=== PATIENT | male | born 1945 | race Two or more races ===

== ENCOUNTER 2022-10-04 09:57 | Inpatient (IN) | payer OTHER ==
[~2022-10-04] VITALS: Ht 170.2 cm; Wt 64.2 kg
[2022-10-04] MEDS ORDERED: SODIUM CHLORIDE 0.9% 1,000 ML IV ONE ×4 (10:30→13:30)
[2022-10-04] MEDS ORDERED: AZITHROMYCIN 500MG/ 250ML 250 ML IV ONE (10:30)
[2022-10-04] MEDS ORDERED: cefTRIAXone 1GM/50ML D5W 50 ML IV ONE (10:30)
[2022-10-04 10:46] LABS: Basophils # (auto) 0.1 10 ^3/uL (0-0.2); Basophils % (auto) 0.5 % (0.0-2.0); Eosinophils # (auto) 0 10 ^3/uL (0-0.8); Eosinophils % (auto) 0.1 % (0.0-7.0); Hematocrit 32.6 % (41.0-53.0); Hemoglobin 10.4 g/dL (13.5-17.5); Lymphocytes # (auto) 0.4 10 ^3/uL (0.4-5.4); Lymphocytes % (auto) 3.8 % (10.0-50.0); Mean Corpuscular Hemoglobin 28.4 pg (28.0-32.0); Mean Corpuscular Hgb Conc. 31.9 g/dL (32.0-36.0); Monocytes # (auto) 1.7 10 ^3/uL (0-1.3); Monocytes % (auto) 16.3 % (0.0-12.0); Neutrophils # (auto) 8.4 10 ^3/uL (1.6-8.6); Neutrophils % (auto) 79.3 % (37.0-80.0); Red Blood Cells 3.66 10^6/uL (4.5-5.90); Red Cell Distribution Width 16.8 % (11.8-14.3); White Blood Cell 10.6 10^3/uL (4.4-10.8)
[2022-10-04 11:02] LABS: Albumin 1.7 g/dL (3.4-5.0); Calcium 6.9 mg/dL (8.5-10.1); Potassium 4.3 mmol/L (3.5-5.1)
[2022-10-04 11:05] LABS: BUN/Creatinine Ratio 18.9 (10.0-20.0); Bilirubin, Total 0.7 mg/dL (0.2-1.0); Lactic Acid w/Reflex 2.5 mmol/L (0.4-2.0); Total Protein 4.7 g/dL (6.4-8.2)
[2022-10-04 11:55] LABS: INR 1.84 (0.9-1.15); Prothrombin Time 18.6 sec (9.3-11.8)
[2022-10-04 12:19] VITALS: PULSE 113; RESP 24; O2SAT 98
[2022-10-04] MEDS: NOREPINEPHRINE 8 MG/250ML KIT 250 ML IV SCH (13:15)
[2022-10-04 13:20] LABS: Urine Bacteria NONE SEEN /hpf (None Seen); Urine Blood Negative /uL (Negative); Urine Clarity HAZY (Clear); Urine Color Yellow (Yellow); Urine Mucus FEW (None Seen); Urine Protein, UAD 1+ (Negative); Urine Specific Gravity 1.021 (1.001-1.035); Urine Urobilinogen Normal (Negative); Urine WBC 17 /hpf (0 - 3); Urine pH 5.5 (5.0-8.0)
[2022-10-04] MEDS ORDERED: MORPHINE SULFATE 4 MG/ML SYR/VIAL IV PRN (16:30)
[2022-10-04] MEDS: metroNIDAZOLE 500MG/100ML 100 ML IV SCH (16:47)
[2022-10-04] MEDS: D5W/ SOD CHL 0.9%/KCL 20MEQ 1,000 ML IV SCH (16:48)
[2022-10-04 20:00] VITALS: PULSE 127; RESP 26; O2SAT 97
[2022-10-04] MEDS: ACETAMINOPHEN 650 mg PER 20.3 mL UD PO PRN (22:33)
[2022-10-05] VITALS (71 sets, daily range): BP systolic 89–118; BP diastolic 51–68; PULSE 110–124; RESP 22–35; TEMP 97.4–98.2; O2SAT 92–99
[2022-10-05] MEDS: D5W/ SOD CHL 0.9%/KCL 20MEQ 1,000 ML IV SCH ×3 (00:50→21:12)
[2022-10-05] MEDS: metroNIDAZOLE 500MG/100ML 100 ML IV SCH ×2 (02:42→08:42)
[2022-10-05 06:37] LABS: Basophils # (auto) 0 10 ^3/uL (0-0.2); Basophils % (auto) 0.1 % (0.0-2.0); Eosinophils # (auto) 0 10 ^3/uL (0-0.8); Eosinophils % (auto) 0.1 % (0.0-7.0); Hematocrit 30.2 % (41.0-53.0); Lymphocytes # (auto) 0.4 10 ^3/uL (0.4-5.4); Lymphocytes % (auto) 3.2 % (10.0-50.0); Mean Corpuscular Hemoglobin 29.2 pg (28.0-32.0); Mean Corpuscular Hgb Conc. 33.1 g/dL (32.0-36.0); Mean Corpuscular Volume 88.2 fL (80.0-100.0); Monocytes # (auto) 1.1 10 ^3/uL (0-1.3); Monocytes % (auto) 9.2 % (0.0-12.0); Neutrophils # (auto) 10.3 10 ^3/uL (1.6-8.6); Neutrophils % (auto) 87.4 % (37.0-80.0); Red Blood Cells 3.43 10^6/uL (4.5-5.90); White Blood Cell 11.7 10^3/uL (4.4-10.8)
[2022-10-05 06:45] LABS: BUN/Creatinine Ratio 25.7 (10.0-20.0); Calcium 6.7 mg/dL (8.5-10.1); Magnesium 2.4 mg/dL (1.6-2.6); Potassium 3.9 mmol/L (3.5-5.1)
[2022-10-05 06:48] LABS: Lactic Acid w/Reflex 2.1 mmol/L (0.4-2.0)
[2022-10-05] MEDS: ENOXAPARIN SOD 40 MG/0.4 ML SYRINGE SC SCH (07:38)
[2022-10-05] MEDS: FAMOTIDINE (10MG/ML) 2ML VL IV SCH (07:38)
[2022-10-05] MEDS ORDERED: cefTRIAXone 1GM/50ML D5W 50 ML IV SCH (09:00)
[2022-10-05] MEDS: NOREPINEPHRINE 8 MG/250ML KIT 250 ML IV SCH (12:54)
[2022-10-05] MEDS: VANCOMYCIN HCL 125MG/5ML ORAL SOL PO SCH ×2 (18:20→22:00)
[2022-10-05] MEDS: HYOSCYAMINE SULF 0.125 MG ODT TAB PO PRN (18:20)
[2022-10-05] MEDS: ONDANSETRON HCL 4 MG/2 ML VIAL IV PRN (18:56)
[2022-10-06] VITALS (26 sets, daily range): BP systolic 88–141; BP diastolic 56–76; PULSE 104–115; RESP 19–36; TEMP 97.4–99.8; O2SAT 95–99
[2022-10-06 05:13] LABS: Hematocrit 32.1 % (41.0-53.0); Hemoglobin 10.2 g/dL (13.5-17.5); Mean Corpuscular Hemoglobin 28.3 pg (28.0-32.0); Mean Corpuscular Hgb Conc. 31.7 g/dL (32.0-36.0); Mean Corpuscular Volume 89.5 fL (80.0-100.0); Red Blood Cells 3.59 10^6/uL (4.5-5.90); Red Cell Distribution Width 17.1 % (11.8-14.3); White Blood Cell 7.5 10^3/uL (4.4-10.8)
[2022-10-06 05:28] LABS: BUN/Creatinine Ratio 24.3 (10.0-20.0); Potassium 4.3 mmol/L (3.5-5.1)
[2022-10-06 05:36] LABS: Basophils % (manual) 0 (0.0-2.0); Blast Cells 0; Eosinophils % (manual) 0 (0-7); Myelocytes % 0; Promyelocytes % 0; Reactive Lymphocytes 0
[2022-10-06] MEDS: VANCOMYCIN HCL 125MG/5ML ORAL SOL PO SCH ×4 (05:55→21:32)
[2022-10-06] MEDS: D5W/ SOD CHL 0.9%/KCL 20MEQ 1,000 ML IV SCH ×4 (05:55→23:47)
[2022-10-06 09:08] LABS: Anisocytosis Slight; Band Neutrophils % (manual) 35; Lymphocytes % (manual) 6 (10.0-50.0); Metamyelocytes % 1; Monocytes % (manual) 12 (0-12); Platelet Estimate Adequate
[2022-10-06] MEDS: ENOXAPARIN SOD 40 MG/0.4 ML SYRINGE SC SCH (10:13)
[2022-10-06] MEDS: FAMOTIDINE (10MG/ML) 2ML VL IV SCH (10:13)
[2022-10-06] MEDS: NOREPINEPHRINE 8 MG/250ML KIT 250 ML IV SCH (10:13)
[2022-10-06] MEDS: ONDANSETRON HCL 4 MG/2 ML VIAL IV PRN (17:04)
[2022-10-06] MEDS: metroNIDAZOLE 500MG/100ML 100 ML IV SCH ×2 (17:37→23:47)
[2022-10-07] VITALS (11 sets, daily range): BP systolic 110–138; BP diastolic 63–83; PULSE 100–114; RESP 18–32; TEMP 97.4–98.7; O2SAT 95–100
[2022-10-07] MEDS: metroNIDAZOLE 500MG/100ML 100 ML IV SCH ×3 (05:14→18:13)
[2022-10-07] MEDS: VANCOMYCIN HCL 125MG/5ML ORAL SOL PO SCH ×4 (05:14→22:04)
[2022-10-07] MEDS: FAMOTIDINE (10MG/ML) 2ML VL IV SCH (08:53)
[2022-10-07] MEDS: ENOXAPARIN SOD 40 MG/0.4 ML SYRINGE SC SCH (08:54)
[2022-10-07] MEDS: D5W/ SOD CHL 0.9%/KCL 20MEQ 1,000 ML IV SCH ×2 (11:26→15:50)
[2022-10-07] MEDS: CHOLESTYRAMINE 4 GM POWDER PO SCH (22:03)
[2022-10-08] VITALS (8 sets, daily range): BP systolic 131–148; BP diastolic 72–90; PULSE 81–117; RESP 17–31; TEMP 97–99.7; O2SAT 95–98
[2022-10-08] MEDS: metroNIDAZOLE 500MG/100ML 100 ML IV SCH ×4 (00:25→17:51)
[2022-10-08] MEDS: D5W/ SOD CHL 0.9%/KCL 20MEQ 1,000 ML IV SCH ×2 (00:25→19:36)
[2022-10-08] MEDS: VANCOMYCIN HCL 125MG/5ML ORAL SOL PO SCH ×3 (05:24→17:52)
[2022-10-08 06:32] LABS: Hematocrit 32.2 % (41.0-53.0); Mean Corpuscular Hgb Conc. 31.2 g/dL (32.0-36.0); Mean Corpuscular Volume 89.6 fL (80.0-100.0); Red Blood Cells 3.59 10^6/uL (4.5-5.90); Red Cell Distribution Width 17.5 % (11.8-14.3); White Blood Cell 2.9 10^3/uL (4.4-10.8)
[2022-10-08 06:52] LABS: Calcium 7.4 mg/dL (8.5-10.1); Potassium 4.5 mmol/L (3.5-5.1)
[2022-10-08 06:55] LABS: BUN/Creatinine Ratio 31.7 (10.0-20.0)
[2022-10-08 06:57] LABS: Basophils % (manual) 0 (0.0-2.0); Blast Cells 0; Eosinophils % (manual) 0 (0-7); Promyelocytes % 0; Reactive Lymphocytes 0
[2022-10-08] MEDS: FAMOTIDINE (10MG/ML) 2ML VL IV SCH (10:44)
[2022-10-08] MEDS: ENOXAPARIN SOD 40 MG/0.4 ML SYRINGE SC SCH (10:44)
[2022-10-08] MEDS: CHOLESTYRAMINE 4 GM POWDER PO SCH (10:45)
[2022-10-08 11:27] LABS: Band Neutrophils % (manual) 28; Lymphocytes % (manual) 28 (10.0-50.0); Metamyelocytes % 7; Monocytes % (manual) 8 (0-12); Myelocytes % 7
[2022-10-08 11:28] LABS: Platelet Estimate Adequate
[2022-10-09] MEDS: VANCOMYCIN HCL 125MG/5ML ORAL SOL PO SCH ×5 (04:17→21:23)
[2022-10-09] MEDS: CHOLESTYRAMINE 4 GM POWDER PO SCH ×3 (04:18→23:18)
[2022-10-09] MEDS: metroNIDAZOLE 500MG/100ML 100 ML IV SCH ×5 (04:19→23:18)
[2022-10-09 06:37] LABS: Hematocrit 34.4 % (41.0-53.0); Mean Corpuscular Hemoglobin 28.6 pg (28.0-32.0); Mean Corpuscular Volume 89.5 fL (80.0-100.0); Red Blood Cells 3.84 10^6/uL (4.5-5.90); Red Cell Distribution Width 17.8 % (11.8-14.3); White Blood Cell 3.2 10^3/uL (4.4-10.8)
[2022-10-09 06:49] LABS: Potassium 4.6 mmol/L (3.5-5.1)
[2022-10-09 06:58] LABS: BUN/Creatinine Ratio 38.8 (10.0-20.0); Calcium 7.5 mg/dL (8.5-10.1); Magnesium 2.6 mg/dL (1.6-2.6)
[2022-10-09 07:40] LABS: Band Neutrophils % (manual) 0; Basophils % (manual) 0 (0.0-2.0); Blast Cells 0; Eosinophils % (manual) 0 (0-7); Metamyelocytes % 0; Myelocytes % 0; Promyelocytes % 0; Reactive Lymphocytes 0
[2022-10-09 08:00] VITALS: PULSE 113; PULSE 120; RESP 20; O2SAT 95
[2022-10-09 08:56] VITALS: BP 151/92; PULSE 119; RESP 14; TEMP 98.7; O2SAT 96
[2022-10-09] MEDS: FAMOTIDINE (10MG/ML) 2ML VL IV SCH (10:16)
[2022-10-09] MEDS: ENOXAPARIN SOD 40 MG/0.4 ML SYRINGE SC SCH (10:17)
[2022-10-09 10:52] LABS: Lymphocytes % (manual) 25 (10.0-50.0); Monocytes % (manual) 23 (0-12); Platelet Estimate Adequate
[2022-10-09] MEDS: D5W/ SOD CHL 0.9%/KCL 20MEQ 1,000 ML IV SCH (11:02)
[2022-10-09] MEDS ORDERED: IOHEXOL 300 MG/ML 100ML BOTTLE IJ ONE (13:55)
[2022-10-09 17:01] VITALS: BP 139/74; PULSE 110; RESP 14; TEMP 97.5; O2SAT 94
[2022-10-09 20:00] VITALS: PULSE 110; RESP 20; O2SAT 95
[2022-10-09 22:00] VITALS: BP 138/75; PULSE 110; RESP 20; TEMP 99.3; O2SAT 99
[2022-10-10] VITALS (7 sets, daily range): BP systolic 113–145; BP diastolic 60–76; PULSE 100–114; RESP 16–22; TEMP 97.7–98.3; O2SAT 98–100
[2022-10-10] MEDS: D5W/ SOD CHL 0.9%/KCL 20MEQ 1,000 ML IV SCH ×3 (00:12→14:22)
[2022-10-10] MEDS: metroNIDAZOLE 500MG/100ML 100 ML IV SCH ×4 (05:35→23:36)
[2022-10-10] MEDS: VANCOMYCIN HCL 125MG/5ML ORAL SOL PO SCH ×4 (05:35→21:40)
[2022-10-10] MEDS: ENOXAPARIN SOD 40 MG/0.4 ML SYRINGE SC SCH (09:13)
[2022-10-10] MEDS: FAMOTIDINE (10MG/ML) 2ML VL IV SCH (09:13)
[2022-10-10] MEDS: ONDANSETRON HCL 4 MG/2 ML VIAL IV PRN (09:27)
[2022-10-10] MEDS: CHOLESTYRAMINE 4 GM POWDER PO SCH ×2 (10:53→21:37)
[2022-10-11] VITALS (7 sets, daily range): BP systolic 109–138; BP diastolic 66–74; PULSE 98–107; RESP 16–22; TEMP 97.5–98.6; O2SAT 98–99
[2022-10-11] MEDS: VANCOMYCIN HCL 125MG/5ML ORAL SOL PO SCH ×4 (05:06→21:10)
[2022-10-11] MEDS: metroNIDAZOLE 500MG/100ML 100 ML IV SCH ×4 (05:06→23:00)
[2022-10-11 07:09] LABS: Basophils # (auto) 0 10 ^3/uL (0-0.2); Basophils % (auto) 0.1 % (0.0-2.0); Eosinophils # (auto) 0 10 ^3/uL (0-0.8); Eosinophils % (auto) 1.3 % (0.0-7.0); Hematocrit 31.8 % (41.0-53.0); Hemoglobin 10.2 g/dL (13.5-17.5); Lymphocytes # (auto) 0.4 10 ^3/uL (0.4-5.4); Mean Corpuscular Hemoglobin 28.6 pg (28.0-32.0); Mean Corpuscular Hgb Conc. 32.1 g/dL (32.0-36.0); Mean Corpuscular Volume 89.2 fL (80.0-100.0); Monocytes # (auto) 0.5 10 ^3/uL (0-1.3); Neutrophils # (auto) 1.4 10 ^3/uL (1.6-8.6); Neutrophils % (auto) 60.1 % (37.0-80.0); Nucleated Red Blood Cells % 0.2 %; Red Blood Cells 3.57 10^6/uL (4.5-5.90); Red Cell Distribution Width 18.3 % (11.8-14.3); White Blood Cell 2.3 10^3/uL (4.4-10.8)
[2022-10-11 07:23] LABS: Potassium 4.3 mmol/L (3.5-5.1)
[2022-10-11 07:29] LABS: Albumin 1.3 g/dL (3.4-5.0); BUN/Creatinine Ratio 42.9 (10.0-20.0); Bilirubin, Total 0.4 mg/dL (0.2-1.0); Calcium 7.3 mg/dL (8.5-10.1); Total Protein 4.5 g/dL (6.4-8.2)
[2022-10-11 07:56] LABS: Monocytes % (auto) 20.5 % (0.0-12.0)
[2022-10-11] MEDS: FAMOTIDINE (10MG/ML) 2ML VL IV SCH (09:52)
[2022-10-11] MEDS: ENOXAPARIN SOD 40 MG/0.4 ML SYRINGE SC SCH (09:53)
[2022-10-11] MEDS: CHOLESTYRAMINE 4 GM POWDER PO SCH ×2 (09:53→21:09)
[2022-10-11] MEDS: D5W/ SOD CHL 0.9%/KCL 20MEQ 1,000 ML IV SCH (13:11)
[2022-10-11] MEDS: Pro-Stat SF 30ml Vanilla PO SCH (18:00)
[2022-10-12] VITALS (7 sets, daily range): BP systolic 123–142; BP diastolic 70–76; PULSE 102–113; RESP 17–20; TEMP 97.7–99.2; O2SAT 97–99
[2022-10-12] MEDS: metroNIDAZOLE 500MG/100ML 100 ML IV SCH ×4 (05:01→22:59)
[2022-10-12] MEDS: VANCOMYCIN HCL 125MG/5ML ORAL SOL PO SCH ×4 (05:52→22:55)
[2022-10-12 07:27] LABS: Hemoglobin 10.4 g/dL (13.5-17.5); Mean Corpuscular Hgb Conc. 31.4 g/dL (32.0-36.0)
[2022-10-12 07:30] LABS: Hematocrit 33.3 % (41.0-53.0); Mean Corpuscular Hemoglobin 28.2 pg (28.0-32.0); Mean Corpuscular Volume 89.7 fL (80.0-100.0); Red Blood Cells 3.71 10^6/uL (4.5-5.90); Red Cell Distribution Width 18.3 % (11.8-14.3)
[2022-10-12 07:36] LABS: White Blood Cell 1.5 10^3/uL (4.4-10.8)
[2022-10-12 07:37] LABS: Basophils % (manual) 0 (0.0-2.0); Blast Cells 0; Eosinophils % (manual) 0 (0-7); Metamyelocytes % 0; Myelocytes % 0; Promyelocytes % 0; Reactive Lymphocytes 0
[2022-10-12] MEDS: Pro-Stat SF 30ml Vanilla PO SCH ×2 (08:00→19:12)
[2022-10-12 08:23] LABS: Band Neutrophils % (manual) 15; Lymphocytes % (manual) 27 (10.0-50.0); Monocytes % (manual) 27 (0-12)
[2022-10-12 08:24] LABS: Platelet Estimate Adequate
[2022-10-12] MEDS: CHOLESTYRAMINE 4 GM POWDER PO SCH ×2 (09:49→21:13)
[2022-10-12] MEDS: FAMOTIDINE (10MG/ML) 2ML VL IV SCH (09:50)
[2022-10-12] MEDS: MORPHINE SULFATE INJ 2 MG/ml SYRG IV PRN (09:51)
[2022-10-12] MEDS: ENOXAPARIN SOD 40 MG/0.4 ML SYRINGE SC SCH (09:52)
[2022-10-12] MEDS: D5W/ SOD CHL 0.9%/KCL 20MEQ 1,000 ML IV SCH ×3 (09:56→21:14)
[2022-10-12] MEDS: ONDANSETRON HCL 4 MG/2 ML VIAL IV PRN (12:03)
[2022-10-13] VITALS (7 sets, daily range): BP systolic 112–120; BP diastolic 53–73; PULSE 101–120; RESP 16–20; TEMP 97.8–99.4; O2SAT 96–99
[2022-10-13] MEDS: metroNIDAZOLE 500MG/100ML 100 ML IV SCH ×2 (05:08→11:12)
[2022-10-13] MEDS: VANCOMYCIN HCL 125MG/5ML ORAL SOL PO SCH ×3 (05:29→18:03)
[2022-10-13 05:51] LABS: Hemoglobin 10.4 g/dL (13.5-17.5)
[2022-10-13 05:55] LABS: Hematocrit 32.4 % (41.0-53.0); Mean Corpuscular Hemoglobin 28.2 pg (28.0-32.0); Mean Corpuscular Volume 88.2 fL (80.0-100.0); Red Blood Cells 3.68 10^6/uL (4.5-5.90); Red Cell Distribution Width 18.6 % (11.8-14.3)
[2022-10-13 06:08] LABS: BUN/Creatinine Ratio 31.9 (10.0-20.0); Calcium 6.7 mg/dL (8.5-10.1); Magnesium 2.1 mg/dL (1.6-2.6)
[2022-10-13 06:15] LABS: White Blood Cell 1.8 10^3/uL (4.4-10.8)
[2022-10-13 06:17] LABS: Basophils % (manual) 0 (0.0-2.0); Blast Cells 0; Eosinophils % (manual) 0 (0-7); Metamyelocytes % 0; Myelocytes % 0; Promyelocytes % 0; Reactive Lymphocytes 0
[2022-10-13] MEDS: Pro-Stat SF 30ml Vanilla PO SCH ×2 (08:00→18:01)
[2022-10-13] MEDS: FAMOTIDINE (10MG/ML) 2ML VL IV SCH (08:34)
[2022-10-13] MEDS: ENOXAPARIN SOD 40 MG/0.4 ML SYRINGE SC SCH (08:40)
[2022-10-13 10:50] LABS: Band Neutrophils % (manual) 11; Lymphocytes % (manual) 22 (10.0-50.0); Monocytes % (manual) 18 (0-12)
[2022-10-13 10:52] LABS: Anisocytosis Slight; Platelet Estimate Adequate
[2022-10-13] MEDS: CHOLESTYRAMINE 4 GM POWDER PO SCH ×3 (11:12→21:52)
[2022-10-13] MEDS: MORPHINE SULFATE INJ 2 MG/ml SYRG IV PRN (11:16)
[2022-10-13] MEDS: SODIUM CHLORIDE 0.9% 1,000 ML IV SCH (14:00)
[2022-10-13] MEDS ORDERED: PATIENTS OWN MEDICATION PO SCH (22:00)
[2022-10-13] MEDS: VANCOMYCIN 500MG RECTAL ENEMA IN 100ML/NS PR SCH (22:10)
[2022-10-14] VITALS (7 sets, daily range): BP systolic 110–136; BP diastolic 63–77; PULSE 97–106; RESP 14–17; TEMP 98.1–99.6; O2SAT 96–99
[2022-10-14] MEDS: SODIUM CHLORIDE 0.9% 1,000 ML IV SCH (03:27)
[2022-10-14] MEDS: VANCOMYCIN 500MG RECTAL ENEMA IN 100ML/NS PR SCH ×4 (06:04→21:59)
[2022-10-14] MEDS: CHOLESTYRAMINE 4 GM POWDER PO SCH ×3 (06:11→21:59)
[2022-10-14 07:26] LABS: Basophils # (auto) 0 10 ^3/uL (0-0.2); Eosinophils # (auto) 0 10 ^3/uL (0-0.8); Hemoglobin 9.4 g/dL (13.5-17.5); Lymphocytes # (auto) 0.5 10 ^3/uL (0.4-5.4); Monocytes # (auto) 0.3 10 ^3/uL (0-1.3); Neutrophils # (auto) 0.6 10 ^3/uL (1.6-8.6)
[2022-10-14 07:29] LABS: Basophils % (auto) 0.4 % (0.0-2.0); Eosinophils % (auto) 2.8 % (0.0-7.0); Hematocrit 29.3 % (41.0-53.0); Lymphocytes % (auto) 33.3 % (10.0-50.0); Mean Corpuscular Hemoglobin 28.2 pg (28.0-32.0); Mean Corpuscular Volume 88.1 fL (80.0-100.0); Neutrophils % (auto) 40.6 % (37.0-80.0); Nucleated Red Blood Cells % 0.3 %; Red Blood Cells 3.33 10^6/uL (4.5-5.90); Red Cell Distribution Width 18.5 % (11.8-14.3)
[2022-10-14 07:38] LABS: White Blood Cell 1.5 10^3/uL (4.4-10.8)
[2022-10-14 07:39] LABS: Monocytes % (auto) 22.9 % (0.0-12.0); Potassium 3.3 mmol/L (3.5-5.1)
[2022-10-14 07:47] LABS: Albumin 1.1 g/dL (3.4-5.0); Bilirubin, Total 0.3 mg/dL (0.2-1.0); Calcium 6.2 mg/dL (8.5-10.1); Total Protein 3.6 g/dL (6.4-8.2)
[2022-10-14] MEDS: Pro-Stat SF 30ml Vanilla PO SCH ×2 (08:00→18:00)
[2022-10-14] MEDS: FAMOTIDINE (10MG/ML) 2ML VL IV SCH (10:09)
[2022-10-14] MEDS: ENOXAPARIN SOD 40 MG/0.4 ML SYRINGE SC SCH (10:11)
[2022-10-14] MEDS: SOD CHL 0.9%/ KCL 20MEQ 1,000 ML IV SCH ×2 (15:00→19:32)
[2022-10-14] MEDS ORDERED: PATIENTS OWN MEDICATION PO SCH (22:00)
[2022-10-15] VITALS (7 sets, daily range): BP systolic 116–124; BP diastolic 62–76; PULSE 1–113; RESP 17–18; TEMP 97.7–99.1; O2SAT 95–100
[2022-10-15] MEDS: CHOLESTYRAMINE 4 GM POWDER PO SCH ×3 (05:53→22:03)
[2022-10-15] MEDS: VANCOMYCIN 500MG RECTAL ENEMA IN 100ML/NS PR SCH ×4 (05:54→22:02)
[2022-10-15 06:09] LABS: Hematocrit 30.9 % (41.0-53.0); Hemoglobin 9.9 g/dL (13.5-17.5); Mean Corpuscular Hgb Conc. 31.9 g/dL (32.0-36.0); Mean Corpuscular Volume 87.7 fL (80.0-100.0); Red Blood Cells 3.52 10^6/uL (4.5-5.90); Red Cell Distribution Width 18.5 % (11.8-14.3)
[2022-10-15 06:19] LABS: White Blood Cell 1.5 10^3/uL (4.4-10.8)
[2022-10-15 06:21] LABS: Basophils % (manual) 0 (0.0-2.0); Blast Cells 0; Metamyelocytes % 0; Myelocytes % 0; Promyelocytes % 0; Reactive Lymphocytes 0
[2022-10-15 06:27] LABS: Potassium 4.2 mmol/L (3.5-5.1)
[2022-10-15 06:44] LABS: BUN/Creatinine Ratio 34.3 (10.0-20.0); Calcium 7.1 mg/dL (8.5-10.1); Magnesium 2.6 mg/dL (1.6-2.6)
[2022-10-15] MEDS: Pro-Stat SF 30ml Vanilla PO SCH ×2 (08:00→18:06)
[2022-10-15 08:11] LABS: Band Neutrophils % (manual) 4; Eosinophils % (manual) 1 (0-7); Lymphocytes % (manual) 46 (10.0-50.0); Monocytes % (manual) 12 (0-12)
[2022-10-15 08:12] LABS: Large Platelets FEW; Platelet Estimate Adequa
[2022-10-15] MEDS: SOD CHL 0.9%/ KCL 20MEQ 1,000 ML IV SCH ×2 (10:05→17:40)
[2022-10-15] MEDS: FAMOTIDINE (10MG/ML) 2ML VL IV SCH (10:06)
[2022-10-15] MEDS: ENOXAPARIN SOD 40 MG/0.4 ML SYRINGE SC SCH (10:06)
[2022-10-16] VITALS (7 sets, daily range): BP systolic 117–142; BP diastolic 69–76; PULSE 100–110; RESP 14–22; TEMP 97.8–98.3; O2SAT 98–99
[2022-10-16] MEDS: SOD CHL 0.9%/ KCL 20MEQ 1,000 ML IV SCH ×2 (01:31→19:46)
[2022-10-16] MEDS: VANCOMYCIN 500MG RECTAL ENEMA IN 100ML/NS PR SCH ×4 (05:55→22:00)
[2022-10-16] MEDS: CHOLESTYRAMINE 4 GM POWDER PO SCH ×3 (05:55→22:00)
[2022-10-16] MEDS: Pro-Stat SF 30ml Vanilla PO SCH ×2 (09:56→18:30)
[2022-10-16] MEDS: FAMOTIDINE (10MG/ML) 2ML VL IV SCH (09:57)
[2022-10-16] MEDS: ENOXAPARIN SOD 40 MG/0.4 ML SYRINGE SC SCH (09:57)
[2022-10-16 10:45] LABS: Hematocrit 30.2 % (41.0-53.0); Hemoglobin 9.6 g/dL (13.5-17.5); Mean Corpuscular Hemoglobin 27.9 pg (28.0-32.0); Mean Corpuscular Hgb Conc. 31.8 g/dL (32.0-36.0); Mean Corpuscular Volume 87.7 fL (80.0-100.0); Red Blood Cells 3.44 10^6/uL (4.5-5.90); Red Cell Distribution Width 18.5 % (11.8-14.3)
[2022-10-16 10:48] LABS: White Blood Cell 1.5 10^3/uL (4.4-10.8)
[2022-10-16 10:49] LABS: Basophils % (manual) 0 (0.0-2.0); Blast Cells 0; Metamyelocytes % 0; Myelocytes % 0; Promyelocytes % 0; Reactive Lymphocytes 0
[2022-10-16 11:18] LABS: Band Neutrophils % (manual) 12; Eosinophils % (manual) 3 (0-7); Lymphocytes % (manual) 49 (10.0-50.0); Monocytes % (manual) 7 (0-12)
[2022-10-16 11:19] LABS: Platelet Estimate Adequate
[2022-10-16] MEDS ORDERED: DIPHENOXYLATE W/ATROPINE 2.5 MG TAB PO PRN (12:45)
[2022-10-17] VITALS (7 sets, daily range): BP systolic 113–134; BP diastolic 70–79; PULSE 99–114; RESP 0–18; TEMP 97.8–98.9; O2SAT 98–100
[2022-10-17] MEDS: VANCOMYCIN 500MG RECTAL ENEMA IN 100ML/NS PR SCH ×4 (06:02→22:30)
[2022-10-17] MEDS: CHOLESTYRAMINE 4 GM POWDER PO SCH ×3 (06:02→22:29)
[2022-10-17 06:27] LABS: Hemoglobin 7.9 g/dL (13.5-17.5)
[2022-10-17 06:30] LABS: Hematocrit 25.1 % (41.0-53.0); Mean Corpuscular Hemoglobin 28.5 pg (28.0-32.0); Mean Corpuscular Hgb Conc. 31.4 g/dL (32.0-36.0); Mean Corpuscular Volume 90.8 fL (80.0-100.0); Red Blood Cells 2.77 10^6/uL (4.5-5.90); Red Cell Distribution Width 18.9 % (11.8-14.3)
[2022-10-17 07:20] LABS: White Blood Cell 1.6 10^3/uL (4.4-10.8)
[2022-10-17 07:21] LABS: Basophils % (manual) 0 (0.0-2.0); Blast Cells 0; Eosinophils % (manual) 0 (0-7); Metamyelocytes % 0; Myelocytes % 0; Promyelocytes % 0; Reactive Lymphocytes 0
[2022-10-17] MEDS: SOD CHL 0.9%/ KCL 20MEQ 1,000 ML IV SCH ×2 (07:39→23:46)
[2022-10-17] MEDS: Pro-Stat SF 30ml Vanilla PO SCH ×2 (08:00→18:00)
[2022-10-17 09:15] LABS: Band Neutrophils % (manual) 2; Lymphocytes % (manual) 40 (10.0-50.0); Monocytes % (manual) 13 (0-12); Platelet Estimate Adequate
[2022-10-17] MEDS: FAMOTIDINE (10MG/ML) 2ML VL IV SCH (11:22)
[2022-10-17] MEDS: ENOXAPARIN SOD 40 MG/0.4 ML SYRINGE SC SCH (11:22)
[2022-10-17] MEDS ORDERED: MONT-8 PO (11:27)
[2022-10-17] MEDS ORDERED: IRON SUCROSE COMPLEX 200 MG in SODIUM CHL 0.9% 100 ML IV SCH (12:30)
[2022-10-17] MEDS ORDERED: SODIUM FERR GLUC 62.5MG/5ML 125 MG in SODIUM CHL 0.9% 100 ML IV ONE (18:00)
[2022-10-18] VITALS (7 sets, daily range): BP systolic 116–141; BP diastolic 69–78; PULSE 108–113; RESP 16–20; TEMP 97.7–99.6; O2SAT 98–100
[2022-10-18] MEDS: VANCOMYCIN 500MG RECTAL ENEMA IN 100ML/NS PR SCH ×2 (06:14→13:57)
[2022-10-18] MEDS: CHOLESTYRAMINE 4 GM POWDER PO SCH ×3 (06:14→22:18)
[2022-10-18 06:47] LABS: INR 2.19 (0.9-1.15); Partial Thromboplastin Time 39.1 SEC (24.5-34.5); Prothrombin Time 21.8 sec (9.3-11.8)
[2022-10-18 06:49] LABS: Basophils # (auto) 0 10 ^3/uL (0-0.2); Basophils % (auto) 0.7 % (0.0-2.0); Eosinophils # (auto) 0 10 ^3/uL (0-0.8); Eosinophils % (auto) 2.1 % (0.0-7.0); Hematocrit 28.2 % (41.0-53.0); Lymphocytes # (auto) 0.5 10 ^3/uL (0.4-5.4); Lymphocytes % (auto) 25.2 % (10.0-50.0); Mean Corpuscular Hemoglobin 27.9 pg (28.0-32.0); Mean Corpuscular Hgb Conc. 31.8 g/dL (32.0-36.0); Mean Corpuscular Volume 87.7 fL (80.0-100.0); Monocytes # (auto) 0.5 10 ^3/uL (0-1.3); Neutrophils % (auto) 47.2 % (37.0-80.0); Nucleated Red Blood Cells % 0.8 %; Red Blood Cells 3.22 10^6/uL (4.5-5.90)
[2022-10-18 07:35] LABS: Monocytes % (auto) 24.8 % (0.0-12.0)
[2022-10-18] MEDS: Pro-Stat SF 30ml Vanilla PO SCH ×2 (08:00→18:30)
[2022-10-18] MEDS: FAMOTIDINE (10MG/ML) 2ML VL IV SCH (09:20)
[2022-10-18] MEDS: ENOXAPARIN SOD 40 MG/0.4 ML SYRINGE SC SCH (09:20)
[2022-10-18] MEDS ORDERED: SODIUM FERR GLUC 62.5MG/5ML 125 MG in SODIUM CHL 0.9% 100 ML IV SCH (12:00)
[2022-10-18] MEDS: SOD CHL 0.9%/ KCL 20MEQ 1,000 ML IV SCH (12:57)
[2022-10-18] MEDS: VANCOMYCIN HCL 125MG/5ML ORAL SOL PO SCH ×2 (18:25→22:17)
[2022-10-18] MEDS: metroNIDAZOLE 500MG/100ML 100 ML IV SCH (22:18)
[2022-10-19] MEDS: SOD CHL 0.9%/ KCL 20MEQ 1,000 ML IV SCH ×3 (03:47→23:26)
[2022-10-19 05:00] VITALS: BP 115/71; PULSE 111; RESP 17; TEMP 98.3; O2SAT 100
[2022-10-19] MEDS: VANCOMYCIN HCL 125MG/5ML ORAL SOL PO SCH ×4 (05:55→21:21)
[2022-10-19] MEDS: CHOLESTYRAMINE 4 GM POWDER PO SCH ×3 (05:55→21:20)
[2022-10-19] MEDS: metroNIDAZOLE 500MG/100ML 100 ML IV SCH ×3 (05:56→21:20)
[2022-10-19 05:59] LABS: Hemoglobin 9.1 g/dL (13.5-17.5)
[2022-10-19 06:08] LABS: Hematocrit 28.7 % (41.0-53.0); Mean Corpuscular Hemoglobin 28.1 pg (28.0-32.0); Mean Corpuscular Hgb Conc. 31.8 g/dL (32.0-36.0); Mean Corpuscular Volume 88.6 fL (80.0-100.0); Red Blood Cells 3.24 10^6/uL (4.5-5.90); Red Cell Distribution Width 18.7 % (11.8-14.3)
[2022-10-19 06:12] LABS: Potassium 3.7 mmol/L (3.5-5.1)
[2022-10-19 06:18] LABS: White Blood Cell 1.9 10^3/uL (4.4-10.8)
[2022-10-19 06:19] LABS: Basophils % (manual) 0 (0.0-2.0); Blast Cells 0; Metamyelocytes % 0; Myelocytes % 0; Promyelocytes % 0; Reactive Lymphocytes 0
[2022-10-19 06:21] LABS: Albumin 1.3 g/dL (3.4-5.0); BUN/Creatinine Ratio 26.3 (10.0-20.0); Bilirubin, Total 0.5 mg/dL (0.2-1.0); Calcium 7.5 mg/dL (8.5-10.1); Total Protein 4.5 g/dL (6.4-8.2)
[2022-10-19 07:06] LABS: Band Neutrophils % (manual) 16; Eosinophils % (manual) 1 (0-7); Lymphocytes % (manual) 28 (10.0-50.0); Monocytes % (manual) 14 (0-12); Platelet Estimate Adequate
[2022-10-19 08:00] VITALS: PULSE 111; RESP 20; O2SAT 99
[2022-10-19] MEDS: Pro-Stat SF 30ml Vanilla PO SCH ×2 (08:00→18:00)
[2022-10-19 09:00] VITALS: BP 120/80; PULSE 120; RESP 22; TEMP 98.4; O2SAT 99
[2022-10-19] MEDS: ENOXAPARIN SOD 40 MG/0.4 ML SYRINGE SC SCH (09:52)
[2022-10-19] MEDS: IRON SUCROSE COMPLEX 200 MG in SODIUM CHL 0.9% 100 ML IV SCH (12:17)
[2022-10-19 13:00] VITALS: BP 111/77; PULSE 100; RESP 20; TEMP 98.5; O2SAT 99
[2022-10-19 17:00] VITALS: BP 125/63; PULSE 100; RESP 18; TEMP 98.3; O2SAT 99
[2022-10-19] MEDS ORDERED: TPN PER PHARMACY 0 ML IV SCH (17:30)
[2022-10-19 19:07] LABS: Magnesium 2.4 mg/dL (1.6-2.6); Phosphorus 2.7 mg/dL (2.5-4.90)
[2022-10-19 19:13] LABS: INR 2.15 (0.9-1.15); Partial Thromboplastin Time 44.3 SEC (24.5-34.5); Prothrombin Time 21.5 sec (9.3-11.8)
[2022-10-19 19:53] LABS: Hemoglobin 9.4 g/dL (13.5-17.5)
[2022-10-19 19:55] LABS: Hematocrit 30.2 % (41.0-53.0); Mean Corpuscular Hemoglobin 27.5 pg (28.0-32.0); Mean Corpuscular Volume 88.8 fL (80.0-100.0); Red Cell Distribution Width 18.5 % (11.8-14.3); White Blood Cell 2.1 10^3/uL (4.4-10.8)
[2022-10-19 19:58] LABS: Basophils % (manual) 0 (0.0-2.0); Blast Cells 0; Eosinophils % (manual) 0 (0-7); Metamyelocytes % 0; Myelocytes % 0; Promyelocytes % 0; Reactive Lymphocytes 0
[2022-10-19 20:00] VITALS: PULSE 114; RESP 18; O2SAT 98
[2022-10-19] MEDS ORDERED: AMINO ACID INFUSION IN D10W 1,000 ML IV NR (20:00)
[2022-10-19 21:35] LABS: Band Neutrophils % (manual) 3; Lymphocytes % (manual) 26 (10.0-50.0); Monocytes % (manual) 17 (0-12); Platelet Estimate Adequate
[2022-10-19] MEDS: ACCU-CHEK COMFORT CURVE STRIP VI SCH (23:25)
[2022-10-19] MEDS: InsuLIN REG 1unit/0.01ml Soln (100units/ml) SC SCH (23:25)
[2022-10-20] VITALS (7 sets, daily range): BP systolic 134–139; BP diastolic 54–80; PULSE 109–120; RESP 14–20; TEMP 97.4–99.3; O2SAT 98–100
[2022-10-20] MEDS ORDERED: DEXTROSE (50%) 50ML SYRG IV SCH
[2022-10-20] MEDS: VANCOMYCIN HCL 125MG/5ML ORAL SOL PO SCH ×4 (05:21→21:55)
[2022-10-20] MEDS: metroNIDAZOLE 500MG/100ML 100 ML IV SCH ×3 (05:21→21:55)
[2022-10-20] MEDS: CHOLESTYRAMINE 4 GM POWDER PO SCH ×3 (05:21→21:55)
[2022-10-20] MEDS: ACCU-CHEK COMFORT CURVE STRIP VI SCH ×4 (05:54→23:31)
[2022-10-20] MEDS: InsuLIN REG 1unit/0.01ml Soln (100units/ml) SC SCH ×4 (06:04→23:31)
[2022-10-20 06:42] LABS: Hematocrit 28.4 % (41.0-53.0); Hemoglobin 9.2 g/dL (13.5-17.5); Mean Corpuscular Hemoglobin 28.5 pg (28.0-32.0); Mean Corpuscular Hgb Conc. 32.5 g/dL (32.0-36.0); Mean Corpuscular Volume 87.7 fL (80.0-100.0); Red Blood Cells 3.24 10^6/uL (4.5-5.90)
[2022-10-20 06:51] LABS: Basophils % (manual) 0 (0.0-2.0); Blast Cells 0; Metamyelocytes % 0; Myelocytes % 0; Promyelocytes % 0; Reactive Lymphocytes 0
[2022-10-20 06:59] LABS: Potassium 3.2 mmol/L (3.5-5.1)
[2022-10-20 07:11] LABS: Band Neutrophils % (manual) 10; Eosinophils % (manual) 1 (0-7); Lymphocytes % (manual) 31 (10.0-50.0); Monocytes % (manual) 17 (0-12)
[2022-10-20 07:12] LABS: Platelet Estimate Adequate
[2022-10-20 07:14] LABS: Albumin 1.3 g/dL (3.4-5.0); BUN/Creatinine Ratio 21.4 (10.0-20.0); Bilirubin, Total 0.4 mg/dL (0.2-1.0); Calcium 7.7 mg/dL (8.5-10.1); Magnesium 2.1 mg/dL (1.6-2.6); Phosphorus 1.9 mg/dL (2.5-4.90); Total Protein 4.4 g/dL (6.4-8.2)
[2022-10-20] MEDS: Pro-Stat SF 30ml Vanilla PO SCH ×2 (08:00→17:56)
[2022-10-20] MEDS ORDERED: POTASSIUM CHLORIDE 40 MEQ, LIDOCAINE 1% (LOCAL ANESTH.) 4 ML in SODIUM CHL 0.9% 250 ML IV ONE (09:30)
[2022-10-20] MEDS ORDERED: SODIUM PHOSP 40 MEQ in D5W 5% 250 ML IV ONE (10:15)
[2022-10-20] MEDS ORDERED: POTASSIUM PHOSPHATE 44 MEQ in D5W 5% 250 ML IV ONE (10:15)
[2022-10-20] MEDS: IRON SUCROSE COMPLEX 200 MG in SODIUM CHL 0.9% 100 ML IV SCH (12:00)
[2022-10-20] MEDS: SOD CHL 0.9%/ KCL 20MEQ 1,000 ML IV SCH (18:44)
[2022-10-20] MEDS ORDERED: PPN PER PHARMACY IV NR ×10 (20:00)
[2022-10-20] MEDS ORDERED: TPN PER PHARMACY IV NR ×9 (20:00)
[2022-10-20] MEDS: HYOSCYAMINE SULF 0.125 MG ODT TAB PO PRN (22:26)
[2022-10-21 04:35] VITALS: BP 152/77; PULSE 95; RESP 19; TEMP 98.4; O2SAT 99
[2022-10-21] MEDS: ACCU-CHEK COMFORT CURVE STRIP VI SCH ×3 (05:05→17:16)
[2022-10-21] MEDS: metroNIDAZOLE 500MG/100ML 100 ML IV SCH ×3 (05:05→21:58)
[2022-10-21] MEDS: CHOLESTYRAMINE 4 GM POWDER PO SCH ×3 (05:05→21:58)
[2022-10-21] MEDS: VANCOMYCIN HCL 125MG/5ML ORAL SOL PO SCH (05:05)
[2022-10-21 06:03] LABS: Hemoglobin 8.4 g/dL (13.5-17.5)
[2022-10-21 06:06] LABS: Hematocrit 26.8 % (41.0-53.0); Mean Corpuscular Hemoglobin 28.3 pg (28.0-32.0); Mean Corpuscular Hgb Conc. 31.3 g/dL (32.0-36.0); Mean Corpuscular Volume 90.2 fL (80.0-100.0); Red Blood Cells 2.98 10^6/uL (4.5-5.90); Red Cell Distribution Width 19.6 % (11.8-14.3); White Blood Cell 2.2 10^3/uL (4.4-10.8)
[2022-10-21 06:08] LABS: Basophils % (manual) 0 (0.0-2.0); Blast Cells 0; Metamyelocytes % 0; Myelocytes % 0; Promyelocytes % 0; Reactive Lymphocytes 0
[2022-10-21] MEDS: InsuLIN REG 1unit/0.01ml Soln (100units/ml) SC SCH ×4 (06:19→23:48)
[2022-10-21 06:49] LABS: Band Neutrophils % (manual) 26; Eosinophils % (manual) 2 (0-7); Lymphocytes % (manual) 33 (10.0-50.0); Monocytes % (manual) 14 (0-12); Platelet Estimate Adequate
[2022-10-21] MEDS: SOD CHL 0.9%/ KCL 20MEQ 1,000 ML IV SCH ×2 (07:00→13:12)
[2022-10-21 08:00] VITALS: BP_SYST 131; BP_SYST 137; BP_SYST 157; BP_DIAS 67; BP_DIAS 74; BP_DIAS 77; PULSE 102; PULSE 110; PULSE 20; PULSE 88; RESP 18; RESP 20; TEMP 97.5; TEMP 97.6; TEMP 98.7; O2SAT 97; O2SAT 98; O2SAT 99
[2022-10-21] MEDS: Pro-Stat SF 30ml Vanilla PO SCH ×2 (08:54→18:04)
[2022-10-21] MEDS: DIFICID 200 MG TABLET PO SCH ×2 (09:53→21:57)
[2022-10-21 11:40] LABS: Calcium 7.1 mg/dL (8.5-10.1); Potassium 3.2 mmol/L (3.5-5.1)
[2022-10-21 11:46] LABS: Albumin 1.3 g/dL (3.4-5.0); BUN/Creatinine Ratio 26.1 (10.0-20.0); Bilirubin, Total 0.3 mg/dL (0.2-1.0); Magnesium 2.4 mg/dL (1.6-2.6); Phosphorus 2.8 mg/dL (2.5-4.90); Total Protein 4.5 g/dL (6.4-8.2)
[2022-10-21] MEDS ORDERED: LIDOCAINE 1% (LOCAL ANESTH.) PF 5ml SDV ID ONE (12:00)
[2022-10-21] MEDS: IRON SUCROSE COMPLEX 200 MG in SODIUM CHL 0.9% 100 ML IV SCH (12:00)
[2022-10-21] MEDS: POTASSIUM CHL 20MEQ/100ML 100 ML IV SCH ×2 (12:47→16:34)
[2022-10-21 20:00] VITALS: PULSE 109; RESP 20; O2SAT 98
[2022-10-21] MEDS ORDERED: TPN PER PHARMACY IV NR ×10 (20:00)
[2022-10-21] MEDS: SODIUM CHLOR 0.9% PF (SALINE LOCK) 10ML VIAL/SYR IV SCH (21:58)
[2022-10-21 22:00] VITALS: BP 124/79; PULSE 110; RESP 26; TEMP 98.6; O2SAT 98
[2022-10-21] MEDS: MORPHINE SULFATE INJ 2 MG/ml SYRG IV PRN (23:18)
[2022-10-22] VITALS (7 sets, daily range): BP systolic 127–131; BP diastolic 66–80; PULSE 85–120; RESP 18–20; TEMP 98–99; O2SAT 97–100
[2022-10-22] MEDS: ACCU-CHEK COMFORT CURVE STRIP VI SCH ×5 (00:18→23:35)
[2022-10-22] MEDS: SOD CHL 0.9%/ KCL 20MEQ 1,000 ML IV SCH ×2 (02:27→23:00)
[2022-10-22] MEDS: InsuLIN REG 1unit/0.01ml Soln (100units/ml) SC SCH ×4 (05:40→23:36)
[2022-10-22] MEDS: CHOLESTYRAMINE 4 GM POWDER PO SCH ×3 (05:40→21:18)
[2022-10-22] MEDS: metroNIDAZOLE 500MG/100ML 100 ML IV SCH ×3 (05:40→21:18)
[2022-10-22 08:00] LABS: Potassium 4.2 mmol/L (3.5-5.1)
[2022-10-22 08:04] LABS: Albumin 1.4 g/dL (3.4-5.0); BUN/Creatinine Ratio 25.9 (10.0-20.0); Calcium 7.4 mg/dL (8.5-10.1); Magnesium 2.6 mg/dL (1.6-2.6); Phosphorus 2.8 mg/dL (2.5-4.90)
[2022-10-22] MEDS: SODIUM CHLOR 0.9% PF (SALINE LOCK) 10ML VIAL/SYR IV SCH ×2 (10:17→21:18)
[2022-10-22] MEDS: DIFICID 200 MG TABLET PO SCH ×2 (10:17→21:18)
[2022-10-22] MEDS: Pro-Stat SF 30ml Vanilla PO SCH ×2 (10:20→17:58)
[2022-10-22] MEDS ORDERED: TPN PER PHARMACY IV NR ×9 (20:00)
[2022-10-23] VITALS (7 sets, daily range): BP systolic 109–145; BP diastolic 67–86; PULSE 106–119; RESP 15–20; TEMP 97.4–98.2; O2SAT 98–100
[2022-10-23 04:58] LABS: Hematocrit 29.2 % (41.0-53.0); Hemoglobin 9.5 g/dL (13.5-17.5); Mean Corpuscular Hemoglobin 28.1 pg (28.0-32.0); Mean Corpuscular Hgb Conc. 32.4 g/dL (32.0-36.0); Mean Corpuscular Volume 86.7 fL (80.0-100.0); Red Blood Cells 3.37 10^6/uL (4.5-5.90); Red Cell Distribution Width 19.9 % (11.8-14.3); White Blood Cell 3.8 10^3/uL (4.4-10.8)
[2022-10-23] MEDS: metroNIDAZOLE 500MG/100ML 100 ML IV SCH ×2 (05:18→14:03)
[2022-10-23] MEDS: CHOLESTYRAMINE 4 GM POWDER PO SCH ×3 (05:18→20:00)
[2022-10-23] MEDS: ACCU-CHEK COMFORT CURVE STRIP VI SCH ×3 (05:18→17:41)
[2022-10-23 05:19] LABS: Basophils % (manual) 0 (0.0-2.0); Blast Cells 0; Promyelocytes % 0; Reactive Lymphocytes 0
[2022-10-23 05:47] LABS: Albumin 1.4 g/dL (3.4-5.0); Calcium 7.2 mg/dL (8.5-10.1); Magnesium 2.4 mg/dL (1.6-2.6); Potassium 3.5 mmol/L (3.5-5.1)
[2022-10-23 05:50] LABS: BUN/Creatinine Ratio 34.4 (10.0-20.0); Bilirubin, Total 0.3 mg/dL (0.2-1.0); Phosphorus 2.8 mg/dL (2.5-4.90); Total Protein 5.1 g/dL (6.4-8.2)
[2022-10-23] MEDS: InsuLIN REG 1unit/0.01ml Soln (100units/ml) SC SCH ×3 (06:37→17:41)
[2022-10-23 07:57] LABS: Band Neutrophils % (manual) 40; Eosinophils % (manual) 1 (0-7); Lymphocytes % (manual) 23 (10.0-50.0); Metamyelocytes % 12; Monocytes % (manual) 7 (0-12); Myelocytes % 2; Platelet Estimate Adequate
[2022-10-23] MEDS: Pro-Stat SF 30ml Vanilla PO SCH ×2 (08:01→17:41)
[2022-10-23] MEDS: SOD CHL 0.9%/ KCL 20MEQ 1,000 ML IV SCH ×2 (08:01→21:45)
[2022-10-23] MEDS: DIFICID 200 MG TABLET PO SCH ×2 (10:09→21:41)
[2022-10-23] MEDS: SODIUM CHLOR 0.9% PF (SALINE LOCK) 10ML VIAL/SYR IV SCH ×2 (10:09→21:41)
[2022-10-23] MEDS: MORPHINE SULFATE INJ 2 MG/ml SYRG IV PRN (10:33)
[2022-10-23] MEDS ORDERED: LIDOCAINE 2% JELLY 11ml (GLYDO) UR ONE (12:00)
[2022-10-23] MEDS ORDERED: LIDOCAINE 2% JELLY 11ml (GLYDO) ONE (12:02)
[2022-10-23] MEDS ORDERED: FAT EMULSION IV NR ×9 (20:00)
[2022-10-23] MEDS ORDERED: POTASSIUM ACETATE IV NR ×9 (20:00)
[2022-10-23] MEDS ORDERED: SODIUM PHOSPHATES IV NR ×9 (20:00)
[2022-10-23] MEDS ORDERED: [UNRECOGNIZED DRUG - OTHER] IV NR ×9 (20:00)
[2022-10-24] VITALS (8 sets, daily range): BP systolic 107–138; BP diastolic 66–82; PULSE 87–125; RESP 14–18; TEMP 98–99.1; O2SAT 94–100
[2022-10-24] MEDS: ACCU-CHEK COMFORT CURVE STRIP VI SCH ×5 (00:14→23:52)
[2022-10-24] MEDS: CHOLESTYRAMINE 4 GM POWDER PO SCH ×4 (01:24→20:09)
[2022-10-24] MEDS: InsuLIN REG 1unit/0.01ml Soln (100units/ml) SC SCH ×5 (05:25→23:52)
[2022-10-24 06:39] LABS: Hematocrit 28.2 % (41.0-53.0); Hemoglobin 9.1 g/dL (13.5-17.5)
[2022-10-24 06:58] LABS: Potassium 3.5 mmol/L (3.5-5.1)
[2022-10-24 07:10] LABS: Albumin 1.3 g/dL (3.4-5.0); Bilirubin, Total 0.3 mg/dL (0.2-1.0); Calcium 7.4 mg/dL (8.5-10.1); Magnesium 2.2 mg/dL (1.6-2.6); Phosphorus 2.9 mg/dL (2.5-4.90); Total Protein 4.9 g/dL (6.4-8.2)
[2022-10-24] MEDS: Pro-Stat SF 30ml Vanilla PO SCH ×2 (08:00→18:37)
[2022-10-24] MEDS: SODIUM CHLOR 0.9% PF (SALINE LOCK) 10ML VIAL/SYR IV SCH ×2 (09:01→21:34)
[2022-10-24] MEDS: DIFICID 200 MG TABLET PO SCH ×2 (09:01→21:35)
[2022-10-24] MEDS: SOD CHL 0.9%/ KCL 20MEQ 1,000 ML IV SCH (13:38)
[2022-10-24] MEDS ORDERED: TPN PER PHARMACY IV NR ×8 (20:00)
[2022-10-25] VITALS (8 sets, daily range): BP systolic 123–144; BP diastolic 72–83; PULSE 103–115; RESP 14–17; TEMP 98–99.4; O2SAT 99
[2022-10-25] MEDS: CHOLESTYRAMINE 4 GM POWDER PO SCH ×4 (01:41→20:26)
[2022-10-25] MEDS: SOD CHL 0.9%/ KCL 20MEQ 1,000 ML IV SCH ×2 (01:46→17:40)
[2022-10-25] MEDS: ACCU-CHEK COMFORT CURVE STRIP VI SCH ×4 (05:40→23:49)
[2022-10-25] MEDS: InsuLIN REG 1unit/0.01ml Soln (100units/ml) SC SCH ×4 (05:40→23:49)
[2022-10-25] MEDS: Pro-Stat SF 30ml Vanilla PO SCH ×2 (08:16→18:49)
[2022-10-25 08:45] LABS: Potassium 3.4 mmol/L (3.5-5.1)
[2022-10-25 08:59] LABS: Albumin 1.4 g/dL (3.4-5.0); BUN/Creatinine Ratio 57.7 (10.0-20.0); Bilirubin, Total 0.2 mg/dL (0.2-1.0); Calcium 6.6 mg/dL (8.7-10.4); Magnesium 2.4 mg/dL (1.6-2.6); Phosphorus 3.5 mg/dL (2.5-4.90); Total Protein 4.6 g/dL (6.4-8.2)
[2022-10-25] MEDS: SODIUM CHLOR 0.9% PF (SALINE LOCK) 10ML VIAL/SYR IV SCH ×2 (10:17→20:27)
[2022-10-25] MEDS: DIFICID 200 MG TABLET PO SCH ×2 (10:17→20:28)
[2022-10-25] MEDS ORDERED: POTASSIUM CHL 20MEQ/100ML 100 ML IV ONE (10:45)
[2022-10-25] MEDS ORDERED: TPN PER PHARMACY IV NR ×10 (20:00)
[2022-10-26] VITALS (8 sets, daily range): BP systolic 135–144; BP diastolic 71–79; PULSE 91–113; RESP 16–20; TEMP 97.7–100.2; O2SAT 98–99
[2022-10-26] MEDS: CHOLESTYRAMINE 4 GM POWDER PO SCH ×4 (01:45→19:45)
[2022-10-26 05:57] LABS: Basophils # (auto) 0 10 ^3/uL (0-0.2); Basophils % (auto) 0.6 % (0.0-2.0); Eosinophils # (auto) 0.2 10 ^3/uL (0-0.8); Lymphocytes # (auto) 0.9 10 ^3/uL (0.4-5.4); Monocytes # (auto) 0.6 10 ^3/uL (0-1.3); Neutrophils # (auto) 1.8 10 ^3/uL (1.6-8.6); White Blood Cell 3.5 10^3/uL (4.4-10.8)
[2022-10-26 06:00] LABS: Eosinophils % (auto) 5.1 % (0.0-7.0); Hematocrit 26.5 % (41.0-53.0); Hemoglobin 8.3 g/dL (13.5-17.5); Lymphocytes % (auto) 25.7 % (10.0-50.0); Mean Corpuscular Hemoglobin 27.6 pg (28.0-32.0); Mean Corpuscular Hgb Conc. 31.5 g/dL (32.0-36.0); Mean Corpuscular Volume 87.4 fL (80.0-100.0); Monocytes % (auto) 17.7 % (0.0-12.0); Neutrophils % (auto) 50.9 % (37.0-80.0); Nucleated Red Blood Cells % 0.2 %; Red Blood Cells 3.03 10^6/uL (4.5-5.90)
[2022-10-26] MEDS: InsuLIN REG 1unit/0.01ml Soln (100units/ml) SC SCH ×4 (06:00→21:55)
[2022-10-26 06:01] LABS: Red Cell Distribution Width 20.3 % (11.8-14.3)
[2022-10-26 06:23] LABS: Alanine Aminotransferase 11 U/L (7-40); Albumin 2.1 g/dL (3.2-4.8); Alkaline Phosphatase 88 U/L (46-116); Anion Gap 5.2 (5-15); Aspartate Aminotransferase 14 U/L (13-40); BUN/Creatinine Ratio 69.6 (10.0-20.0); Blood Urea Nitrogen 16 mg/dL (9-23); Calcium 7.1 mg/dL (8.7-10.4); Carbon Dioxide 26.8 mmol/L (20-30); Chloride 104 mmol/L (98-107); Glucose 119 mg/dL (74-106); Sodium 136 mmol/L (136-145)
[2022-10-26 06:24] LABS: Bilirubin, Total 0.3 mg/dL (0.2-1.0); Phosphorus 3.5 mg/dL (2.4-5.1); Total Protein 4.5 g/dL (5.7-8.2)
[2022-10-26] MEDS: ACCU-CHEK COMFORT CURVE STRIP VI SCH ×4 (06:26→21:55)
[2022-10-26] MEDS: SOD CHL 0.9%/ KCL 20MEQ 1,000 ML IV SCH ×2 (06:48→15:09)
[2022-10-26] MEDS: Pro-Stat SF 30ml Vanilla PO SCH ×2 (08:00→18:48)
[2022-10-26] MEDS: SODIUM CHLOR 0.9% PF (SALINE LOCK) 10ML VIAL/SYR IV SCH ×2 (09:17→19:25)
[2022-10-26] MEDS: DIFICID 200 MG TABLET PO SCH ×3 (09:17→19:26)
[2022-10-26] MEDS ORDERED: TPN PER PHARMACY IV NR ×9 (20:00)
[2022-10-27] VITALS (7 sets, daily range): BP systolic 127–146; BP diastolic 68–77; PULSE 87–96; RESP 17–20; TEMP 98.5–99.9; O2SAT 96–100
[2022-10-27] MEDS: CHOLESTYRAMINE 4 GM POWDER PO SCH ×4 (01:23→20:34)
[2022-10-27] MEDS: InsuLIN REG 1unit/0.01ml Soln (100units/ml) SC SCH ×3 (05:44→18:00)
[2022-10-27] MEDS: ACCU-CHEK COMFORT CURVE STRIP VI SCH ×3 (05:44→18:00)
[2022-10-27 06:32] LABS: Alanine Aminotransferase 19 U/L (7-40); Albumin 2.2 g/dL (3.2-4.8); Alkaline Phosphatase 115 U/L (46-116); Anion Gap 6.2 (5-15); Aspartate Aminotransferase 21 U/L (13-40); BUN/Creatinine Ratio 93.8 (10.0-20.0); Bilirubin, Total 0.3 mg/dL (0.2-1.0); Blood Urea Nitrogen 15 mg/dL (9-23); Calcium 7.4 mg/dL (8.5-10.1); Carbon Dioxide 27.8 mmol/L (20-30); Chloride 103 mmol/L (98-107); Glucose 113 mg/dL (74-106); Potassium 4.2 mmol/L (3.5-5.1); Sodium 137 mmol/L (136-145); Total Protein 4.5 g/dL (5.7-8.2); Triglycerides 125 mg/dL (< 150)
[2022-10-27] MEDS: DIFICID 200 MG TABLET PO SCH ×2 (08:30→22:28)
[2022-10-27] MEDS: SODIUM CHLOR 0.9% PF (SALINE LOCK) 10ML VIAL/SYR IV SCH ×2 (08:31→22:48)
[2022-10-27] MEDS: Pro-Stat SF 30ml Vanilla PO SCH ×2 (08:31→18:00)
[2022-10-27] MEDS: SOD CHL 0.9%/ KCL 20MEQ 1,000 ML IV SCH ×2 (08:31→09:59)
[2022-10-27] MEDS: TPN PER PHARMACY IV NR ×16 (20:34→22:27)
[2022-10-28] VITALS (7 sets, daily range): BP systolic 121–134; BP diastolic 70–81; PULSE 86–109; RESP 18–22; TEMP 97.6–98.6; O2SAT 99–100
[2022-10-28] MEDS: ACCU-CHEK COMFORT CURVE STRIP VI SCH ×4 (00:15→17:55)
[2022-10-28] MEDS: CHOLESTYRAMINE 4 GM POWDER PO SCH ×4 (01:20→19:45)
[2022-10-28] MEDS: InsuLIN REG 1unit/0.01ml Soln (100units/ml) SC SCH ×4 (06:00→17:53)
[2022-10-28 06:43] LABS: Alanine Aminotransferase 25 U/L (7-40); Albumin 2.7 g/dL (3.2-4.8); Alkaline Phosphatase 140 U/L (46-116); Anion Gap 3.6 (5-15); Aspartate Aminotransferase 23 U/L (13-40); BUN/Creatinine Ratio 62.5 (10.0-20.0); Blood Urea Nitrogen 15 mg/dL (9-23); Calcium 7.9 mg/dL (8.5-10.1); Carbon Dioxide 29.4 mmol/L (20-30); Chloride 101 mmol/L (98-107); Glucose 114 mg/dL (74-106); Magnesium 1.9 mg/dL (1.6-2.6); Sodium 134 mmol/L (136-145)
[2022-10-28 06:44] LABS: Bilirubin, Total 0.3 mg/dL (0.2-1.0); Phosphorus 3.9 mg/dL (2.4-5.1); Total Protein 5.5 g/dL (5.7-8.2)
[2022-10-28] MEDS: SOD CHL 0.9%/ KCL 20MEQ 1,000 ML IV SCH (09:04)
[2022-10-28] MEDS: DIFICID 200 MG TABLET PO SCH ×2 (09:05→22:00)
[2022-10-28] MEDS: Pro-Stat SF 30ml Vanilla PO SCH ×2 (09:05→17:56)
[2022-10-28] MEDS: SODIUM CHLOR 0.9% PF (SALINE LOCK) 10ML VIAL/SYR IV SCH ×2 (09:05→22:00)
[2022-10-28] MEDS ORDERED: MAGNESIUM SULFATE 1GM/100ML 100 ML IV ONE (12:00)
[2022-10-28] MEDS ORDERED: TPN PER PHARMACY IV NR ×9 (20:00)
[2022-10-29] VITALS (7 sets, daily range): BP systolic 117–136; BP diastolic 62–80; PULSE 82–109; RESP 12–22; TEMP 98.1–99.3; O2SAT 98–100
[2022-10-29] MEDS: ACCU-CHEK COMFORT CURVE STRIP VI SCH ×5 (01:10→23:12)
[2022-10-29] MEDS: InsuLIN REG 1unit/0.01ml Soln (100units/ml) SC SCH ×5 (01:11→23:14)
[2022-10-29] MEDS: SOD CHL 0.9%/ KCL 20MEQ 1,000 ML IV SCH ×2 (01:40→15:00)
[2022-10-29] MEDS: CHOLESTYRAMINE 4 GM POWDER PO SCH ×4 (01:45→18:52)
[2022-10-29 07:05] LABS: Potassium 3.9 mmol/L (3.5-5.1)
[2022-10-29 07:06] LABS: Anion Gap 4.3 (5-15); Calcium 8.1 mg/dL (8.7-10.4); Carbon Dioxide 27.7 mmol/L (20-30)
[2022-10-29 07:11] LABS: BUN/Creatinine Ratio 48.5 (10.0-20.0); INR 1.22 (0.9-1.15); Partial Thromboplastin Time 24.5 SEC (24.5-34.5); Prothrombin Time 12.6 sec (9.3-11.8)
[2022-10-29 07:12] LABS: Magnesium 1.9 mg/dL (1.6-2.6)
[2022-10-29 07:13] LABS: Albumin 2.9 g/dL (3.2-4.8); Phosphorus 3.5 mg/dL (2.4-5.1)
[2022-10-29 07:39] LABS: Basophils # (auto) 0 10 ^3/uL (0-0.2); Basophils % (auto) 0.8 % (0.0-2.0); Eosinophils # (auto) 0.3 10 ^3/uL (0-0.8); Eosinophils % (auto) 7.3 % (0.0-7.0); Hemoglobin 9.3 g/dL (13.5-17.5); Lymphocytes # (auto) 0.8 10 ^3/uL (0.4-5.4); Lymphocytes % (auto) 21.2 % (10.0-50.0); Mean Corpuscular Hemoglobin 28.6 pg (28.0-32.0); Mean Corpuscular Hgb Conc. 31.9 g/dL (32.0-36.0); Mean Corpuscular Volume 89.6 fL (80.0-100.0); Monocytes # (auto) 0.6 10 ^3/uL (0-1.3); Monocytes % (auto) 16.6 % (0.0-12.0); Neutrophils % (auto) 54.1 % (37.0-80.0); Nucleated Red Blood Cells % 0.1 %; Red Blood Cells 3.24 10^6/uL (4.5-5.90); White Blood Cell 3.6 10^3/uL (4.4-10.8)
[2022-10-29 07:42] LABS: Red Cell Distribution Width 21.1 % (11.8-14.3)
[2022-10-29] MEDS: Pro-Stat SF 30ml Vanilla PO SCH ×2 (08:00→17:37)
[2022-10-29] MEDS: SODIUM CHLOR 0.9% PF (SALINE LOCK) 10ML VIAL/SYR IV SCH ×2 (10:17→22:34)
[2022-10-29] MEDS: DIFICID 200 MG TABLET PO SCH ×2 (10:17→22:34)
[2022-10-29] MEDS ORDERED: TPN PER PHARMACY IV NR ×21 (20:00)
[2022-10-30] VITALS (8 sets, daily range): BP systolic 130–157; BP diastolic 64–82; PULSE 78–104; RESP 12–20; TEMP 97.2–98.3; O2SAT 98–100
[2022-10-30] MEDS: CHOLESTYRAMINE 4 GM POWDER PO SCH ×4 (01:16→20:00)
[2022-10-30] MEDS: SOD CHL 0.9%/ KCL 20MEQ 1,000 ML IV SCH ×3 (04:12→21:04)
[2022-10-30] MEDS: InsuLIN REG 1unit/0.01ml Soln (100units/ml) SC SCH ×4 (06:00→23:13)
[2022-10-30] MEDS: ACCU-CHEK COMFORT CURVE STRIP VI SCH ×4 (06:10→23:14)
[2022-10-30] MEDS: Pro-Stat SF 30ml Vanilla PO SCH ×2 (08:00→18:00)
[2022-10-30 08:42] LABS: Alanine Aminotransferase 22 U/L (7-40); Albumin 2.9 g/dL (3.2-4.8); Alkaline Phosphatase 160 U/L (46-116); Anion Gap 6.1 (5-15); Aspartate Aminotransferase 17 U/L (13-40); BUN/Creatinine Ratio 53.1 (10.0-20.0); Blood Urea Nitrogen 17 mg/dL (9-23); Calcium 8.1 mg/dL (8.5-10.1); Carbon Dioxide 24.9 mmol/L (20-30); Chloride 103 mmol/L (98-107); Glucose 124 mg/dL (74-106); Magnesium 1.9 mg/dL (1.6-2.6); Sodium 134 mmol/L (136-145)
[2022-10-30 08:43] LABS: Bilirubin, Total 0.3 mg/dL (0.2-1.0); Phosphorus 3.6 mg/dL (2.4-5.1); Total Protein 5.9 g/dL (5.7-8.2)
[2022-10-30] MEDS: SODIUM CHLOR 0.9% PF (SALINE LOCK) 10ML VIAL/SYR IV SCH ×2 (10:00→21:03)
[2022-10-30] MEDS: DIFICID 200 MG TABLET PO SCH ×2 (10:00→21:03)
[2022-10-30] MEDS ORDERED: OXYBUTYNIN CHL 5 MG TAB PO ONE (13:15)
[2022-10-30] MEDS ORDERED: TPN PER PHARMACY IV NR ×11 (20:00)
[2022-10-31] VITALS (7 sets, daily range): BP systolic 108–129; BP diastolic 68–75; PULSE 89–103; RESP 16–20; TEMP 97.3–99; O2SAT 98–99
[2022-10-31] MEDS: CHOLESTYRAMINE 4 GM POWDER PO SCH ×2 (01:45→07:45)
[2022-10-31] MEDS: InsuLIN REG 1unit/0.01ml Soln (100units/ml) SC SCH ×4 (06:00→23:57)
[2022-10-31] MEDS: ACCU-CHEK COMFORT CURVE STRIP VI SCH ×4 (06:05→23:57)
[2022-10-31 07:07] LABS: Alanine Aminotransferase 21 U/L (7-40); Alkaline Phosphatase 164 U/L (46-116); Anion Gap 5.5 (5-15); Aspartate Aminotransferase 13 U/L (13-40); BUN/Creatinine Ratio 56.3 (10.0-20.0); Bilirubin, Total 0.3 mg/dL (0.2-1.0); Blood Urea Nitrogen 18 mg/dL (9-23); Calcium 8.3 mg/dL (8.5-10.1); Carbon Dioxide 25.5 mmol/L (20-30); Chloride 105 mmol/L (98-107); Glucose 115 mg/dL (74-106); Magnesium 1.9 mg/dL (1.6-2.6); Phosphorus 3.5 mg/dL (2.4-5.1); Sodium 136 mmol/L (136-145)
[2022-10-31] MEDS: Pro-Stat SF 30ml Vanilla PO SCH ×2 (08:00→18:00)
[2022-10-31] MEDS: SODIUM CHLOR 0.9% PF (SALINE LOCK) 10ML VIAL/SYR IV SCH ×2 (10:00→21:13)
[2022-10-31] MEDS: OXYBUTYNIN CHL 5 MG TAB PO SCH (10:30)
[2022-10-31] MEDS ORDERED: TPN PER PHARMACY IV NR ×11 (20:00)
[2022-10-31] MEDS: SOD CHL 0.9%/ KCL 20MEQ 1,000 ML IV SCH (20:07)
[2022-10-31] MEDS: PANTOPRAZOLE 40 MG TAB PO SCH (21:13)
[2022-10-31] MEDS: ACETAMINOPHEN 650 mg PER 20.3 mL UD PO PRN (21:21)
[2022-11-01] VITALS (7 sets, daily range): BP systolic 119–136; BP diastolic 68–90; PULSE 91–100; RESP 16–22; TEMP 98.4–100; O2SAT 95–100
[2022-11-01] MEDS: ACCU-CHEK COMFORT CURVE STRIP VI SCH ×4 (05:23→23:10)
[2022-11-01] MEDS: InsuLIN REG 1unit/0.01ml Soln (100units/ml) SC SCH ×4 (05:24→23:10)
[2022-11-01 06:19] LABS: Alanine Aminotransferase 26 U/L (7-40); Alkaline Phosphatase 179 U/L (46-116); Anion Gap 6.5 (5-15); Calcium 8.2 mg/dL (8.7-10.4); Carbon Dioxide 25.5 mmol/L (20-30); Chloride 105 mmol/L (98-107); Glucose 114 mg/dL (74-106); Magnesium 1.8 mg/dL (1.6-2.6); Potassium 4.2 mmol/L (3.5-5.1); Sodium 137 mmol/L (136-145)
[2022-11-01 06:20] LABS: Aspartate Aminotransferase 16 U/L (13-40); Bilirubin, Total 0.3 mg/dL (0.2-1.0); Phosphorus 3.9 mg/dL (2.4-5.1); Total Protein 5.7 g/dL (5.7-8.2)
[2022-11-01 07:45] LABS: BUN/Creatinine Ratio 72.4 (10.0-20.0); Blood Urea Nitrogen 21 mg/dL (9-23)
[2022-11-01] MEDS: Pro-Stat SF 30ml Vanilla PO SCH ×2 (08:00→18:13)
[2022-11-01] MEDS: PANTOPRAZOLE 40 MG TAB PO SCH (08:15)
[2022-11-01] MEDS ORDERED: PANTOPRAZOLE 40 MG/10 ML VIAL INJ IV ONE (09:17)
[2022-11-01] MEDS ORDERED: [UNRECOGNIZED DRUG - OTHER] NG ONE ×2 (10:00)
[2022-11-01] MEDS: SODIUM CHLOR 0.9% PF (SALINE LOCK) 10ML VIAL/SYR IV SCH ×2 (10:38→20:31)
[2022-11-01] MEDS: SOD CHL 0.9%/ KCL 20MEQ 1,000 ML IV SCH ×2 (11:26→23:10)
[2022-11-01] MEDS: OXYBUTYNIN CHL 5 MG TAB PO SCH (13:58)
[2022-11-01] MEDS ORDERED: TPN PER PHARMACY IV NR ×11 (20:00)
[2022-11-02] VITALS (7 sets, daily range): BP systolic 131–146; BP diastolic 72–84; PULSE 58–103; RESP 18–22; TEMP 97.9–99.6; O2SAT 99–100
[2022-11-02] MEDS: ACCU-CHEK COMFORT CURVE STRIP VI SCH ×4 (06:00→23:47)
[2022-11-02] MEDS: InsuLIN REG 1unit/0.01ml Soln (100units/ml) SC SCH ×4 (06:00→23:48)
[2022-11-02 06:24] LABS: Alanine Aminotransferase 34 U/L (7-40); Albumin 3.1 g/dL (3.2-4.8); Alkaline Phosphatase 198 U/L (46-116); Anion Gap 7.7 (5-15); Aspartate Aminotransferase 25 U/L (13-40); Blood Urea Nitrogen 21 mg/dL (9-23); Calcium 8.4 mg/dL (8.5-10.1); Carbon Dioxide 23.3 mmol/L (20-30); Chloride 106 mmol/L (98-107); Glucose 116 mg/dL (74-106); Magnesium 1.8 mg/dL (1.6-2.6); Potassium 3.9 mmol/L (3.5-5.1); Sodium 137 mmol/L (136-145)
[2022-11-02 06:25] LABS: Bilirubin, Total 0.3 mg/dL (0.2-1.0); Phosphorus 3.8 mg/dL (2.4-5.1); Total Protein 6.1 g/dL (5.7-8.2)
[2022-11-02] MEDS: Pro-Stat SF 30ml Vanilla PO SCH ×2 (08:00→18:44)
[2022-11-02] MEDS: MAGNESIUM SULFATE 1GM/100ML 100 ML IV SCH ×2 (08:41→09:53)
[2022-11-02] MEDS: SODIUM CHLOR 0.9% PF (SALINE LOCK) 10ML VIAL/SYR IV SCH ×2 (08:45→21:17)
[2022-11-02] MEDS: OXYBUTYNIN CHL 5 MG TAB PO SCH (08:45)
[2022-11-02] MEDS: SOD CHL 0.9%/ KCL 20MEQ 1,000 ML IV SCH ×2 (13:44→18:45)
[2022-11-02] MEDS ORDERED: TPN PER PHARMACY IV NR ×9 (20:00)
[2022-11-03] VITALS (7 sets, daily range): BP systolic 111–133; BP diastolic 62–79; PULSE 89–101; RESP 18; TEMP 97.5–99.2; O2SAT 99–100
[2022-11-03] MEDS: InsuLIN REG 1unit/0.01ml Soln (100units/ml) SC SCH ×3 (05:19→18:00)
[2022-11-03] MEDS: ACCU-CHEK COMFORT CURVE STRIP VI SCH ×3 (05:19→18:00)
[2022-11-03 05:46] LABS: Basophils # (auto) 0.1 10 ^3/uL (0-0.2); Basophils % (auto) 1.1 % (0.0-2.0); Eosinophils # (auto) 0.3 10 ^3/uL (0-0.8); Eosinophils % (auto) 6.8 % (0.0-7.0); Hematocrit 29.9 % (41.0-53.0); Hemoglobin 9.6 g/dL (13.5-17.5); Lymphocytes # (auto) 1.1 10 ^3/uL (0.4-5.4); Lymphocytes % (auto) 21.9 % (10.0-50.0); Mean Corpuscular Hemoglobin 28.6 pg (28.0-32.0); Mean Corpuscular Hgb Conc. 32.2 g/dL (32.0-36.0); Mean Corpuscular Volume 88.9 fL (80.0-100.0); Monocytes # (auto) 0.8 10 ^3/uL (0-1.3); Monocytes % (auto) 16.2 % (0.0-12.0); Neutrophils # (auto) 2.6 10 ^3/uL (1.6-8.6); Nucleated Red Blood Cells % 0.1 %; Red Blood Cells 3.36 10^6/uL (4.5-5.90); Red Cell Distribution Width 22.7 % (11.8-14.3); White Blood Cell 4.8 10^3/uL (4.4-10.8)
[2022-11-03 06:06] LABS: Alanine Aminotransferase 36 U/L (7-40); Albumin 3.1 g/dL (3.2-4.8); Alkaline Phosphatase 191 U/L (46-116); Anion Gap 1.7 (5-15); Aspartate Aminotransferase 24 U/L (13-40); BUN/Creatinine Ratio 48.6 (10.0-20.0); Blood Urea Nitrogen 18 mg/dL (9-23); Calcium 8.5 mg/dL (8.5-10.1); Carbon Dioxide 29.3 mmol/L (20-30); Chloride 104 mmol/L (98-107); Glucose 124 mg/dL (74-106); Magnesium 2.1 mg/dL (1.6-2.6); Sodium 135 mmol/L (136-145); Triglycerides 158 mg/dL (< 150)
[2022-11-03 06:07] LABS: Bilirubin, Total 0.3 mg/dL (0.2-1.0); Phosphorus 3.9 mg/dL (2.4-5.1); Total Protein 6.3 g/dL (5.7-8.2)
[2022-11-03] MEDS: ACETAMINOPHEN 650 mg PER 20.3 mL UD PO PRN (06:55)
[2022-11-03] MEDS: Pro-Stat SF 30ml Vanilla PO SCH ×2 (08:00→18:00)
[2022-11-03] MEDS: SODIUM CHLOR 0.9% PF (SALINE LOCK) 10ML VIAL/SYR IV SCH ×2 (12:47→21:27)
[2022-11-03] MEDS: OXYBUTYNIN CHL 5 MG TAB PO SCH (12:47)
[2022-11-03] MEDS: HYOSCYAMINE SULF 0.125 MG ODT TAB PO PRN (12:47)
[2022-11-03] MEDS: SOD CHL 0.9%/ KCL 20MEQ 1,000 ML IV SCH (12:50)
[2022-11-03] MEDS: MORPHINE SULFATE INJ 2 MG/ml SYRG IV PRN (13:10)
[2022-11-03] MEDS ORDERED: TPN PER PHARMACY IV NR ×9 (20:00)
[2022-11-04] VITALS (7 sets, daily range): BP systolic 122–135; BP diastolic 66–82; PULSE 86–105; RESP 16–20; TEMP 97.8–98.1; O2SAT 93–100
[2022-11-04] MEDS: ACCU-CHEK COMFORT CURVE STRIP VI SCH ×4 (05:42→18:10)
[2022-11-04] MEDS: InsuLIN REG 1unit/0.01ml Soln (100units/ml) SC SCH ×4 (05:42→18:00)
[2022-11-04 06:55] LABS: Alanine Aminotransferase 32 U/L (7-40); Albumin 3.1 g/dL (3.2-4.8); Alkaline Phosphatase 177 U/L (46-116); Anion Gap 6.8 (5-15); Aspartate Aminotransferase 14 U/L (13-40); BUN/Creatinine Ratio 58.8 (10.0-20.0); Blood Urea Nitrogen 20 mg/dL (9-23); Calcium 8.4 mg/dL (8.7-10.4); Carbon Dioxide 24.2 mmol/L (20-30); Chloride 105 mmol/L (98-107); Glucose 121 mg/dL (74-106); Potassium 4.1 mmol/L (3.5-5.1); Sodium 136 mmol/L (136-145)
[2022-11-04 06:56] LABS: Bilirubin, Total 0.3 mg/dL (0.2-1.0); Phosphorus 4.1 mg/dL (2.4-5.1); Total Protein 5.9 g/dL (5.7-8.2)
[2022-11-04 07:28] LABS: Magnesium 1.9 mg/dL (1.6-2.6)
[2022-11-04] MEDS: Pro-Stat SF 30ml Vanilla PO SCH ×2 (08:00→18:00)
[2022-11-04] MEDS ORDERED: MAGNESIUM SULFATE 1GM/100ML 100 ML IV ONE (10:15)
[2022-11-04] MEDS: OXYBUTYNIN CHL 5 MG TAB PO SCH (11:40)
[2022-11-04] MEDS: SOD CHL 0.9%/ KCL 20MEQ 1,000 ML IV SCH (11:40)
[2022-11-04] MEDS: HYOSCYAMINE SULF 0.125 MG ODT TAB PO PRN (11:48)
[2022-11-04] MEDS: SODIUM CHLOR 0.9% PF (SALINE LOCK) 10ML VIAL/SYR IV SCH ×2 (11:48→22:17)
[2022-11-04] MEDS ORDERED: TPN PER PHARMACY IV NR ×10 (20:00)
[2022-11-05] VITALS (7 sets, daily range): BP systolic 122–132; BP diastolic 65–82; PULSE 86–102; RESP 16–18; TEMP 96.7–99; O2SAT 97–100
[2022-11-05] MEDS: ACCU-CHEK COMFORT CURVE STRIP VI SCH ×5 (00:24→23:50)
[2022-11-05] MEDS: InsuLIN REG 1unit/0.01ml Soln (100units/ml) SC SCH ×5 (05:22→23:50)
[2022-11-05 07:52] LABS: Alanine Aminotransferase 31 U/L (7-40); Alkaline Phosphatase 152 U/L (46-116); Anion Gap 6.7 (5-15); BUN/Creatinine Ratio 45.9 (10.0-20.0); Blood Urea Nitrogen 17 mg/dL (9-23); Calcium 8.6 mg/dL (8.5-10.1); Carbon Dioxide 25.3 mmol/L (20-30); Chloride 105 mmol/L (98-107); Glucose 118 mg/dL (74-106); Magnesium 1.8 mg/dL (1.6-2.6); Potassium 3.8 mmol/L (3.5-5.1); Sodium 137 mmol/L (136-145)
[2022-11-05 07:53] LABS: Albumin 3.2 g/dL (3.2-4.8); Aspartate Aminotransferase 21 U/L (13-40); Bilirubin, Total 0.2 mg/dL (0.2-1.0); Phosphorus 3.6 mg/dL (2.4-5.1); Total Protein 6.3 g/dL (5.7-8.2)
[2022-11-05] MEDS: Pro-Stat SF 30ml Vanilla PO SCH ×2 (08:00→18:00)
[2022-11-05] MEDS: SODIUM CHLOR 0.9% PF (SALINE LOCK) 10ML VIAL/SYR IV SCH ×2 (10:46→22:04)
[2022-11-05] MEDS: HYOSCYAMINE SULF 0.125 MG ODT TAB PO PRN (10:46)
[2022-11-05] MEDS: SOD CHL 0.9%/ KCL 20MEQ 1,000 ML IV SCH (10:46)
[2022-11-05] MEDS: OXYBUTYNIN CHL 5 MG TAB PO SCH (10:46)
[2022-11-05 13:28] LABS: Urine Bacteria NONE SEEN /hpf (None Seen); Urine Blood 2+ /uL (Negative); Urine Budding Yeast MODERATE /hpf (None Seen); Urine Clarity CLOUDY (Clear); Urine Color Colorless (Yellow); Urine Hyaline Cast FEW /lpf (0 - 2); Urine Protein, UAD 1+ (Negative); Urine Specific Gravity 1.016 (1.001-1.035); Urine Urobilinogen Normal (Negative); Urine WBC 1604 /hpf (0 - 3); Urine WBC Clumps PRESENT /hpf (None Seen); Urine pH 5.5 (5.0-8.0)
[2022-11-05] MEDS: diphenhdrAMINE HCL 25 MG CAP PO PRN (14:51)
[2022-11-05] MEDS ORDERED: TPN PER PHARMACY IV NR ×10 (20:00)
[2022-11-05] MEDS: NYSTATIN TOPICAL POWDER 15GM TOP SCH (22:00)
[2022-11-06 05:13] VITALS: BP 144/86; PULSE 91; RESP 20; TEMP 98.3; O2SAT 99
[2022-11-06] MEDS: InsuLIN REG 1unit/0.01ml Soln (100units/ml) SC SCH ×3 (05:24→18:00)
[2022-11-06] MEDS: ACCU-CHEK COMFORT CURVE STRIP VI SCH ×3 (05:24→18:00)
[2022-11-06] MEDS: SOD CHL 0.9%/ KCL 20MEQ 1,000 ML IV SCH (05:28)
[2022-11-06 06:26] LABS: Hematocrit 30.8 % (41.0-53.0); Hemoglobin 9.9 g/dL (13.5-17.5); Mean Corpuscular Hemoglobin 29.1 pg (28.0-32.0); Mean Corpuscular Hgb Conc. 32.4 g/dL (32.0-36.0); Red Blood Cells 3.42 10^6/uL (4.5-5.90); White Blood Cell 6.1 10^3/uL (4.4-10.8)
[2022-11-06 06:50] LABS: Alanine Aminotransferase 27 U/L (7-40); Albumin 3.3 g/dL (3.2-4.8); Alkaline Phosphatase 154 U/L (46-116); Anion Gap 7.1 (5-15); Aspartate Aminotransferase 15 U/L (13-40); BUN/Creatinine Ratio 51.4 (10.0-20.0); Blood Urea Nitrogen 19 mg/dL (9-23); Calcium 8.7 mg/dL (8.7-10.4); Carbon Dioxide 24.9 mmol/L (20-30); Chloride 106 mmol/L (98-107); Glucose 118 mg/dL (74-106); Magnesium 1.9 mg/dL (1.6-2.6); Potassium 3.9 mmol/L (3.5-5.1); Sodium 138 mmol/L (136-145)
[2022-11-06 06:51] LABS: Bilirubin, Total 0.3 mg/dL (0.2-1.0); Phosphorus 4.1 mg/dL (2.4-5.1); Total Protein 6.3 g/dL (5.7-8.2)
[2022-11-06 07:37] LABS: Basophils % (manual) 0 (0.0-2.0); Blast Cells 0; Myelocytes % 0; Promyelocytes % 0; Reactive Lymphocytes 0; Red Cell Distribution Width 22.8 % (11.8-14.3)
[2022-11-06 08:00] VITALS: BP 150/81; PULSE 97; PULSE 99; RESP 20; TEMP 98.6; O2SAT 100
[2022-11-06] MEDS: Pro-Stat SF 30ml Vanilla PO SCH ×2 (08:00→18:00)
[2022-11-06] MEDS: SODIUM CHLOR 0.9% PF (SALINE LOCK) 10ML VIAL/SYR IV SCH ×2 (09:29→21:59)
[2022-11-06] MEDS: OXYBUTYNIN CHL 5 MG TAB PO SCH (09:29)
[2022-11-06] MEDS: NYSTATIN TOPICAL POWDER 15GM TOP SCH ×2 (09:29→22:00)
[2022-11-06 13:00] VITALS: BP 120/74; PULSE 84; RESP 20; TEMP 98.5; O2SAT 87
[2022-11-06 14:16] LABS: Band Neutrophils % (manual) 3; Eosinophils % (manual) 4 (0-7); Lymphocytes % (manual) 28 (10.0-50.0); Metamyelocytes % 3; Monocytes % (manual) 6 (0-12)
[2022-11-06 14:33] LABS: Platelet Estimate Adequate
[2022-11-06 16:53] VITALS: BP 145/79; PULSE 93; RESP 16; TEMP 98.7; O2SAT 100
[2022-11-06 20:00] VITALS: PULSE 85
[2022-11-06] MEDS ORDERED: TPN PER PHARMACY IV NR ×11 (20:00)
[2022-11-06 22:00] VITALS: BP 132/78; PULSE 91; RESP 16; TEMP 97.7; O2SAT 98
[2022-11-07] VITALS (7 sets, daily range): BP systolic 123–134; BP diastolic 74–83; PULSE 89–99; RESP 16–19; TEMP 97.9–98.7; O2SAT 99–100
[2022-11-07] MEDS: ACCU-CHEK COMFORT CURVE STRIP VI SCH ×4 (00:10→17:47)
[2022-11-07] MEDS: SOD CHL 0.9%/ KCL 20MEQ 1,000 ML IV SCH ×2 (01:16→18:03)
[2022-11-07] MEDS: diphenhdrAMINE HCL 25 MG CAP PO PRN (01:30)
[2022-11-07] MEDS: InsuLIN REG 1unit/0.01ml Soln (100units/ml) SC SCH ×4 (05:14→17:49)
[2022-11-07 06:57] LABS: Alanine Aminotransferase 34 U/L (7-40); Albumin 3.3 g/dL (3.2-4.8); Alkaline Phosphatase 151 U/L (46-116); Anion Gap 6.9 (5-15); BUN/Creatinine Ratio 54.1 (10.0-20.0); Blood Urea Nitrogen 20 mg/dL (9-23); Calcium 8.8 mg/dL (8.7-10.4); Carbon Dioxide 26.1 mmol/L (20-30); Chloride 104 mmol/L (98-107); Glucose 117 mg/dL (74-106); Magnesium 1.7 mg/dL (1.6-2.6); Sodium 137 mmol/L (136-145)
[2022-11-07 06:58] LABS: Aspartate Aminotransferase 18 U/L (13-40); Phosphorus 3.9 mg/dL (2.4-5.1)
[2022-11-07 06:59] LABS: Bilirubin, Total 0.3 mg/dL (0.2-1.0); Total Protein 6.3 g/dL (5.7-8.2)
[2022-11-07] MEDS: Pro-Stat SF 30ml Vanilla PO SCH ×2 (08:00→18:03)
[2022-11-07] MEDS: OXYBUTYNIN CHL 5 MG TAB PO SCH (09:23)
[2022-11-07] MEDS: SODIUM CHLOR 0.9% PF (SALINE LOCK) 10ML VIAL/SYR IV SCH ×2 (09:24→22:00)
[2022-11-07] MEDS: NYSTATIN TOPICAL POWDER 15GM TOP SCH ×2 (10:00→22:00)
[2022-11-07] MEDS: PANCREATIC ENZYMES 4200 UNIT CAP PO SCH ×2 (12:07→18:03)
[2022-11-07] MEDS: SUCRALFATE 1 GM/10 ML ORAL SUSP PO SCH ×3 (12:07→22:00)
[2022-11-07] MEDS: MAGNESIUM SULFATE 1GM/100ML 100 ML IV SCH ×2 (18:03→20:37)
[2022-11-07] MEDS ORDERED: TPN PER PHARMACY IV NR ×21 (20:00)
[2022-11-07] MEDS: COLESEVELAM PO SCH (22:00)
[2022-11-08] VITALS (7 sets, daily range): BP systolic 118–134; BP diastolic 69–87; PULSE 93–104; RESP 17–20; TEMP 97.2–98.5; O2SAT 97–100
[2022-11-08] MEDS: MORPHINE SULFATE INJ 2 MG/ml SYRG IV PRN (01:25)
[2022-11-08] MEDS: InsuLIN REG 1unit/0.01ml Soln (100units/ml) SC SCH ×4 (06:00→18:00)
[2022-11-08] MEDS: ACCU-CHEK COMFORT CURVE STRIP VI SCH ×4 (06:00→18:03)
[2022-11-08] MEDS: SUCRALFATE 1 GM/10 ML ORAL SUSP PO SCH ×4 (06:47→21:55)
[2022-11-08 07:07] LABS: Alanine Aminotransferase 31 U/L (7-40); Alkaline Phosphatase 137 U/L (46-116); Anion Gap 7.8 (5-15); BUN/Creatinine Ratio 55.9 (10.0-20.0); Blood Urea Nitrogen 19 mg/dL (9-23); Calcium 8.6 mg/dL (8.5-10.1); Carbon Dioxide 24.2 mmol/L (20-30); Chloride 105 mmol/L (98-107); Glucose 114 mg/dL (74-106); Magnesium 2.1 mg/dL (1.6-2.6); Potassium 4.1 mmol/L (3.5-5.1); Sodium 137 mmol/L (136-145)
[2022-11-08 07:08] LABS: Albumin 3.4 g/dL (3.2-4.8); Aspartate Aminotransferase 19 U/L (13-40); Bilirubin, Total 0.3 mg/dL (0.2-1.0); Total Protein 6.5 g/dL (5.7-8.2)
[2022-11-08] MEDS: PANCREATIC ENZYMES 4200 UNIT CAP PO SCH ×3 (08:28→18:02)
[2022-11-08] MEDS: Pro-Stat SF 30ml Vanilla PO SCH ×2 (08:28→18:03)
[2022-11-08] MEDS: OXYBUTYNIN CHL 5 MG TAB PO SCH (09:43)
[2022-11-08] MEDS: SODIUM CHLOR 0.9% PF (SALINE LOCK) 10ML VIAL/SYR IV SCH ×2 (09:43→22:21)
[2022-11-08] MEDS: COLESEVELAM PO SCH ×2 (10:00→22:15)
[2022-11-08] MEDS: NYSTATIN TOPICAL POWDER 15GM TOP SCH ×2 (10:00→22:22)
[2022-11-08] MEDS ORDERED: TPN PER PHARMACY IV NR ×9 (20:00)
[2022-11-08] MEDS: SOD CHL 0.9%/ KCL 20MEQ 1,000 ML IV SCH (21:56)
[2022-11-09 05:00] VITALS: BP 129/77; PULSE 95; RESP 16; TEMP 98.2; O2SAT 98
[2022-11-09] MEDS: InsuLIN REG 1unit/0.01ml Soln (100units/ml) SC SCH ×4 (06:00→17:37)
[2022-11-09] MEDS: ACCU-CHEK COMFORT CURVE STRIP VI SCH ×4 (06:24→17:38)
[2022-11-09] MEDS: SUCRALFATE 1 GM/10 ML ORAL SUSP PO SCH (06:24)
[2022-11-09 07:26] LABS: Anion Gap 6.1 (5-15); Calcium 8.6 mg/dL (8.5-10.1); Carbon Dioxide 24.9 mmol/L (20-30)
[2022-11-09 07:32] LABS: Albumin 3.4 g/dL (3.2-4.8); BUN/Creatinine Ratio 57.6 (10.0-20.0); Magnesium 1.8 mg/dL (1.6-2.6)
[2022-11-09 07:33] LABS: Phosphorus 3.6 mg/dL (2.4-5.1)
[2022-11-09] MEDS: PANCREATIC ENZYMES 4200 UNIT CAP PO SCH ×3 (08:00→17:48)
[2022-11-09] MEDS ORDERED: MAGNESIUM SULFATE 1GM/100ML 100 ML IV ONE (09:15)
[2022-11-09 09:33] VITALS: BP 134/74; PULSE 96; RESP 18; TEMP 99.2; O2SAT 98
[2022-11-09] MEDS: SODIUM CHLOR 0.9% PF (SALINE LOCK) 10ML VIAL/SYR IV SCH ×2 (09:34→20:40)
[2022-11-09] MEDS: Pro-Stat SF 30ml Vanilla PO SCH ×2 (09:34→17:37)
[2022-11-09] MEDS: COLESEVELAM PO SCH ×2 (09:35→20:40)
[2022-11-09] MEDS: OXYBUTYNIN CHL 5 MG TAB PO SCH (10:00)
[2022-11-09] MEDS: SOD CHL 0.9%/ KCL 20MEQ 1,000 ML IV SCH (10:30)
[2022-11-09] MEDS: NYSTATIN TOPICAL POWDER 15GM TOP SCH ×2 (12:21→20:40)
[2022-11-09 12:41] VITALS: BP 124/71; PULSE 96; RESP 18; TEMP 99.3; O2SAT 97
[2022-11-09 17:24] VITALS: BP 123/74; PULSE 94; RESP 18; TEMP 99.2; O2SAT 98
[2022-11-09] MEDS ORDERED: TPN PER PHARMACY IV NR ×9 (20:00)
[2022-11-09 22:00] VITALS: BP 144/72; PULSE 99; RESP 20; TEMP 98.4; O2SAT 99
[2022-11-10] VITALS (7 sets, daily range): BP systolic 107–129; BP diastolic 71–83; PULSE 78–114; RESP 17–20; TEMP 97.2–98; O2SAT 99–100
[2022-11-10] MEDS: ACCU-CHEK COMFORT CURVE STRIP VI SCH ×2 (01:44→06:18)
[2022-11-10] MEDS: InsuLIN REG 1unit/0.01ml Soln (100units/ml) SC SCH ×2 (06:00)
[2022-11-10] MEDS: SOD CHL 0.9%/ KCL 20MEQ 1,000 ML IV SCH (06:21)
[2022-11-10 07:58] LABS: Alanine Aminotransferase 30 U/L (7-40); Albumin 3.5 g/dL (3.2-4.8); Alkaline Phosphatase 131 U/L (46-116); Anion Gap 7.2 (5-15); Aspartate Aminotransferase 16 U/L (13-40); BUN/Creatinine Ratio 56.8 (10.0-20.0); Blood Urea Nitrogen 21 mg/dL (9-23); Calcium 8.9 mg/dL (8.5-10.1); Carbon Dioxide 23.8 mmol/L (20-30); Chloride 105 mmol/L (98-107); Glucose 105 mg/dL (74-106); Magnesium 1.7 mg/dL (1.6-2.6); Phosphorus 4.3 mg/dL (2.4-5.1); Potassium 3.9 mmol/L (3.5-5.1); Sodium 136 mmol/L (136-145)
[2022-11-10 07:59] LABS: Bilirubin, Total 0.2 mg/dL (0.2-1.0); Total Protein 6.7 g/dL (5.7-8.2)
[2022-11-10] MEDS: COLESEVELAM PO SCH ×2 (10:00→21:54)
[2022-11-10] MEDS: NYSTATIN TOPICAL POWDER 15GM TOP SCH ×2 (10:00→21:58)
[2022-11-10] MEDS: OXYBUTYNIN CHL 5 MG TAB PO SCH (10:52)
[2022-11-10] MEDS: SODIUM CHLOR 0.9% PF (SALINE LOCK) 10ML VIAL/SYR IV SCH ×2 (10:53→21:58)
[2022-11-10] MEDS: PANCREATIC ENZYMES 4200 UNIT CAP PO SCH ×3 (10:53→18:05)
[2022-11-10] MEDS: Pro-Stat SF 30ml Vanilla PO SCH ×2 (10:53→18:05)
[2022-11-11] VITALS (7 sets, daily range): BP systolic 121–127; BP diastolic 76–84; PULSE 66–103; RESP 14–22; TEMP 97.4–98.6; O2SAT 98–100
[2022-11-11] MEDS: SOD CHL 0.9%/ KCL 20MEQ 1,000 ML IV SCH ×2 (01:48→22:16)
[2022-11-11] MEDS: COLESEVELAM PO SCH ×2 (10:00→22:00)
[2022-11-11] MEDS: NYSTATIN TOPICAL POWDER 15GM TOP SCH ×2 (10:00→22:00)
[2022-11-11] MEDS: OXYBUTYNIN CHL 5 MG TAB PO SCH (10:27)
[2022-11-11] MEDS: PANCREATIC ENZYMES 4200 UNIT CAP PO SCH ×3 (10:27→18:19)
[2022-11-11] MEDS: SODIUM CHLOR 0.9% PF (SALINE LOCK) 10ML VIAL/SYR IV SCH ×2 (10:27→22:17)
[2022-11-12] VITALS (7 sets, daily range): BP systolic 121–136; BP diastolic 69–78; PULSE 80–97; RESP 17–20; TEMP 97.8–98.4; O2SAT 97–100
[2022-11-12] MEDS: PANCREATIC ENZYMES 4200 UNIT CAP PO SCH ×3 (09:00→18:38)
[2022-11-12] MEDS: OXYBUTYNIN CHL 5 MG TAB PO SCH (09:00)
[2022-11-12] MEDS: COLESEVELAM PO SCH ×2 (10:00→22:00)
[2022-11-12] MEDS: NYSTATIN TOPICAL POWDER 15GM TOP SCH ×2 (10:00→22:00)
[2022-11-12] MEDS: SODIUM CHLOR 0.9% PF (SALINE LOCK) 10ML VIAL/SYR IV SCH ×2 (12:24→22:37)
[2022-11-12] MEDS: SOD CHL 0.9%/ KCL 20MEQ 1,000 ML IV SCH (18:39)
[2022-11-13] VITALS (7 sets, daily range): BP systolic 129–142; BP diastolic 72–84; PULSE 86–106; RESP 16–18; TEMP 97.7–98.8; O2SAT 98–100
[2022-11-13] MEDS: COLESEVELAM PO SCH ×2 (10:00→22:00)
[2022-11-13] MEDS: NYSTATIN TOPICAL POWDER 15GM TOP SCH ×2 (10:00→22:00)
[2022-11-13] MEDS: OXYBUTYNIN CHL 5 MG TAB PO SCH (10:13)
[2022-11-13] MEDS: PANCREATIC ENZYMES 4200 UNIT CAP PO SCH ×3 (10:13→19:17)
[2022-11-13] MEDS: SODIUM CHLOR 0.9% PF (SALINE LOCK) 10ML VIAL/SYR IV SCH ×2 (10:14→22:26)
[2022-11-13] MEDS: SOD CHL 0.9%/ KCL 20MEQ 1,000 ML IV SCH (15:49)
[2022-11-14] VITALS (7 sets, daily range): BP systolic 114–134; BP diastolic 64–81; PULSE 97–111; RESP 17–22; TEMP 97.1–100.3; O2SAT 93–99
[2022-11-14 06:46] LABS: Alanine Aminotransferase 12 U/L (7-40); Albumin 3.2 g/dL (3.2-4.8); Alkaline Phosphatase 111 U/L (46-116); Anion Gap 8.4 (5-15); Aspartate Aminotransferase 11 U/L (13-40); Blood Urea Nitrogen 7 mg/dL (9-23); Calcium 8.3 mg/dL (8.7-10.4); Carbon Dioxide 22.6 mmol/L (20-30); Chloride 106 mmol/L (98-107); Glucose 97 mg/dL (74-106); Potassium 3.2 mmol/L (3.5-5.1); Sodium 137 mmol/L (136-145)
[2022-11-14 06:47] LABS: Total Protein 6.1 g/dL (5.7-8.2)
[2022-11-14 06:56] LABS: Magnesium 1.7 mg/dL (1.6-2.6)
[2022-11-14 07:29] LABS: Bilirubin, Total 0.5 mg/dL (0.2-1.0)
[2022-11-14] MEDS: NYSTATIN TOPICAL POWDER 15GM TOP SCH ×2 (09:37→22:00)
[2022-11-14] MEDS: PANCREATIC ENZYMES 4200 UNIT CAP PO SCH ×3 (09:37→18:17)
[2022-11-14] MEDS: COLESEVELAM PO SCH ×2 (09:37→22:00)
[2022-11-14] MEDS: OXYBUTYNIN CHL 5 MG TAB PO SCH (09:37)
[2022-11-14] MEDS: SODIUM CHLOR 0.9% PF (SALINE LOCK) 10ML VIAL/SYR IV SCH ×2 (09:37→22:00)
[2022-11-14] MEDS ORDERED: POTASSIUM CHLORIDE 20 MEQ, LIDOCAINE 1% (LOCAL ANESTH.) 2 ML in SODIUM CHL 0.9% 100 ML IV ONE (14:30)
[2022-11-14] MEDS: SOD CHL 0.9%/ KCL 20MEQ 1,000 ML IV SCH (15:11)
[2022-11-15 05:00] VITALS: BP 115/64; PULSE 106; RESP 16; TEMP 99.4; O2SAT 94
[2022-11-15] MEDS: SOD CHL 0.9%/ KCL 20MEQ 1,000 ML IV SCH ×2 (06:30→21:20)
[2022-11-15 08:00] VITALS: PULSE 104; PULSE 95; RESP 18; O2SAT 95
[2022-11-15 09:00] VITALS: BP 115/66; PULSE 93; RESP 17; TEMP 98.1; O2SAT 95
[2022-11-15] MEDS: COLESEVELAM PO SCH (09:56)
[2022-11-15] MEDS: PANCREATIC ENZYMES 4200 UNIT CAP PO SCH ×3 (09:56→18:13)
[2022-11-15] MEDS: SODIUM CHLOR 0.9% PF (SALINE LOCK) 10ML VIAL/SYR IV SCH ×2 (09:56→21:29)
[2022-11-15] MEDS: OXYBUTYNIN CHL 5 MG TAB PO SCH (09:56)
[2022-11-15] MEDS: NYSTATIN TOPICAL POWDER 15GM TOP SCH ×2 (10:00→22:00)
[2022-11-15] MEDS: ONDANSETRON HCL 4 MG/2 ML VIAL IV PRN (10:08)
[2022-11-15 11:50] LABS: Chloride 105 mmol/L (98-107); Potassium 3.2 mmol/L (3.5-5.1); Sodium 137 mmol/L (136-145)
[2022-11-15 11:51] LABS: Anion Gap 8.5 (5-15); Calcium 8.1 mg/dL (8.5-10.1); Carbon Dioxide 23.5 mmol/L (20-30)
[2022-11-15 11:56] LABS: BUN/Creatinine Ratio 15.4 (10.0-20.0); Blood Urea Nitrogen 8 mg/dL (9-23); Glucose 105 mg/dL (74-106)
[2022-11-15 11:59] LABS: Basophils # (auto) 0 10 ^3/uL (0-0.2); Basophils % (auto) 0.1 % (0.0-2.0); Eosinophils # (auto) 0 10 ^3/uL (0-0.8); Eosinophils % (auto) 0.4 % (0.0-7.0); Hemoglobin 10.1 g/dL (13.5-17.5); Lymphocytes # (auto) 0.9 10 ^3/uL (0.4-5.4); Lymphocytes % (auto) 7.4 % (10.0-50.0); Mean Corpuscular Hemoglobin 28.9 pg (28.0-32.0); Mean Corpuscular Hgb Conc. 31.5 g/dL (32.0-36.0); Mean Corpuscular Volume 91.7 fL (80.0-100.0); Monocytes # (auto) 1.3 10 ^3/uL (0-1.3); Monocytes % (auto) 10.9 % (0.0-12.0); Neutrophils # (auto) 9.6 10 ^3/uL (1.6-8.6); Neutrophils % (auto) 81.2 % (37.0-80.0); White Blood Cell 11.8 10^3/uL (4.4-10.8)
[2022-11-15 12:14] LABS: Red Cell Distribution Width 21.6 % (11.8-14.3)
[2022-11-15] MEDS ORDERED: POTASSIUM CHL 20 Meq TABLET PO ONE (12:15)
[2022-11-15] MEDS: CHOLESTYRAMINE 4 GM POWDER PO SCH ×2 (13:37→21:15)
[2022-11-15 17:00] VITALS: BP 116/66; PULSE 111; RESP 18; TEMP 98.1; O2SAT 94
[2022-11-15 20:00] VITALS: PULSE 109; PULSE 119; RESP 18; O2SAT 95
[2022-11-15] MEDS: HYOSCYAMINE SULF 0.125 MG ODT TAB PO PRN (20:30)
[2022-11-15] MEDS: POTASSIUM CHL 10 Meq TABLET PO SCH (21:15)
[2022-11-15 22:00] VITALS: BP 129/70; PULSE 119; RESP 18; TEMP 98.2; O2SAT 95
[2022-11-16 02:59] LABS: COVID19 ANTIGEN SOFIA FIA NEGATIVE (NEGATIVE)
[2022-11-16 05:00] VITALS: BP 115/62; PULSE 110; RESP 16; TEMP 98; O2SAT 96
[2022-11-16] MEDS: CHOLESTYRAMINE 4 GM POWDER PO SCH (05:06)
[2022-11-16 08:00] VITALS: PULSE 86; RESP 16; O2SAT 96
[2022-11-16] MEDS: PANCREATIC ENZYMES 4200 UNIT CAP PO SCH (08:09)
[2022-11-16] MEDS: HYOSCYAMINE SULF 0.125 MG ODT TAB PO PRN (08:10)
[2022-11-16 08:50] VITALS: BP 124/77; PULSE 116; RESP 20; TEMP 98.1; O2SAT 96
[2022-11-16] MEDS ORDERED: LACTCAP35 OR (09:22)
[2022-11-16] MEDS ORDERED: CHL4PW PO (09:22)
[2022-11-16] MEDS ORDERED: OXYB5TAB10 PO (09:22)
[2022-11-16] MEDS ORDERED: [UNRECOGNIZED DRUG - CODE] PO (09:24)
[2022-11-16] MEDS: NYSTATIN TOPICAL POWDER 15GM TOP SCH (10:00)
[2022-11-16] MEDS: SODIUM CHLOR 0.9% PF (SALINE LOCK) 10ML VIAL/SYR IV SCH (11:21)
[2022-11-16] MEDS: POTASSIUM CHL 10 Meq TABLET PO SCH (11:21)
[2022-11-16] MEDS: OXYBUTYNIN CHL 5 MG TAB PO SCH (11:21)
[2022-11-16 12:30] VITALS: BP 127/61; PULSE 115; RESP 18; TEMP 99.8; O2SAT 95
[2022-11-16 15:15] VITALS: TEMP 37.7
== END 2022-11-16 16:05 | disposition hospice, home (50) | DRG 371 ==
LOC: ER 09:57 → EDBD 09:57 → TELE 16:27 → DOU IN ICU 10-05 04:00 → TELE-WESTW 10-07 06:04 → WEST WING 10-25 09:14 → TELE-WESTW 10-26 10:57
PROVIDERS: ADMIT Hospitalist; ATTEND Hospitalist
PROC: 02HV33Z Insertion of Infusion Device into Superior Vena Cava, Percutaneous Approach (ICD-10-PCS; principal; 2022-10-21)
PROC: B548ZZA Ultrasonography of Superior Vena Cava, Guidance (ICD-10-PCS; 2022-10-21)
DX: A04.72 Enterocolitis due to Clostridium difficile, not specified as recurrent (principal); E43 Unspecified severe protein-calorie malnutrition; K50.10 Crohn's disease of large intestine without complications; N39.0 Urinary tract infection, site not specified; I95.9 Hypotension, unspecified; R00.0 Tachycardia, unspecified; I10 Essential (primary) hypertension; E78.5 Hyperlipidemia, unspecified; D72.819 Decreased white blood cell count, unspecified; L89.159 Pressure ulcer of sacral region, unspecified stage; R62.7 Adult failure to thrive; Z20.822 Contact with and (suspected) exposure to COVID-19; K21.9 Gastro-esophageal reflux disease without esophagitis; E88.09 Other disorders of plasma-protein metabolism, not elsewhere classified; B95.2 Enterococcus as the cause of diseases classified elsewhere; Z68.22 Body mass index [BMI] 22.0-22.9, adult; Z74.01 Bed confinement status; Z78.9 Other specified health status; Z82.49 Family history of ischemic heart disease and other diseases of the circulatory system; Z86.718 Personal history of other venous thrombosis and embolism; Z51.5 Encounter for palliative care
CPT/HCPCS: 36415; 36569; 71045; 74018; 74176; 74177; 80048; 80053; 80069; 81001; 82962; 83605; 83735; 83880; 84100; 84478; 84484; 85007; 85014; 85018; 85025; 85027; 85048; 85610; 85730; 86141; 87040; 87045; 87081; 87086; 87088; 87186; 87426; 87427; 87493; 93005; 93970; 96361; 96365; 96368; 97110; 97163; 97530; 99291; G0378; J0696; J1756; J1815; J2001; J2405; J3370; J3480; J3490; J7060; J7131